=== PATIENT | male | born 1930 | race Caucasian/White ===

== ENCOUNTER 2020-02-02 08:17 | Observation (INO) | payer MEDICARE, OTHER ==
[2020-02-02] MEDS ORDERED: Famotidine 20 MG/2 ML SDV IVPUSH ONE (08:27)
--- NOTE | 2020-02-02 08:27 | EDM.PDOC ---
ED HPI GENERAL MEDICAL PROBLEM - General Chief Complaint: General Stated Complaint: weakness, lightheaded Time Seen by Provider: 02/02/20 08:20 Source of Information: Reports: Patient, Family (), Old Records ([facility] EMR. No paper hospital chart available.). Denies: Other ([facility]) History Limitations: Reports: No Limitations - History of Present Illness INITIAL COMMENTS - FREE TEXT/NARRATIVE: The patient was brought to the emergency room via private automobile by his for evaluation of progressive generalized weakness and dizziness since yesterday with possible nonspecific chest pressure yesterday evening. He is a somewhat poor historian. No treatment prior to arrival with history of possible heat exposure yesterday. The patient denies any current chest pain/pressure, heart flutter, orthostasis, orthopnea, diaphoresis, paresthesias, recent decreased exercise tolerance, or any other anginal-type symptoms. No recent history of abdominal pain, heartburn, nausea, diarrhea, melena, gross hematochezia, or any food intolerance, including fatty foods, etc.. He denies any gross hematuria, colic, or other UTI symptoms. The patient also denies any recent fever, cough, wheezing, dyspnea, etc.. He has had unintentional weight loss during the last 6 months of at least 10 pounds. No history of recent headaches, visual changes, diplopia, change in mental status, or other change in neurological status. He denies any current pain or discomfort. Onset: Gradual, Unknown/Unsure Onset Date: 02/01/20 Duration: Getting Worse (Dizziness, etc.), Other (No pain) Location: Reports: Chest. Denies: Head, Face, Neck, Abdomen, Back, Upper Extremity, Left, Upper Extremity, Right, Radiates to Quality: Reports: Same as Previous Episode Severity: Moderate (Weakness and dizziness) Improves with: Reports: None Worsens with: Reports: None Context: Reports: Other (As above). Denies: Sick Contact, Trauma Associated Symptoms: Reports: Chest Pain, Weakness. 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) (None) - Related Data Allergies Allergy/AdvReac Type Severity Reaction Status Date / Time Penicillins Allergy itching, Verified 02/02/20 09:24 hives shellfish derived Allergy itching & Verified 02/02/20 09:24 rash Home Meds: Home Meds Albuterol [Ventolin HFA] 2 puff INH Q6HR PRN 07/14/13 [History] Finasteride 5 mg PO BEDTIME 07/14/13 [History] Aspirin [Halfprin] 81 mg PO BRK 04/04/16 [History] Fluocinonide [Lidex 0.05% Crm] 1 applic TOP ASDIRECTED PRN 04/04/16 [History] Levothyroxine Sodium [Synthroid] 100 mcg PO DAILY 04/04/16 [History] Lisinopril 5 mg PO BEDTIME 04/04/16 [History] Loratadine 10 mg PO DAILY PRN 04/04/16 [History] Omeprazole 20 mg PO DAILY 04/04/16 [History] Polyethylene Glycol 3350 [MiraLAX] 17 gram PO DAILY PRN 04/04/16 [History] Past Medical History HEENT History: Reports: Allergic Rhinitis, Cataract, Hard of Hearing, Impaired Vision, Other (See Below) Other HEENT History: Patient wears glasses. 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 Cardiovascular History: Reports: Aneurysm, Arrhythmia, Heart Murmur, High Cholesterol, Hypertension, Pacemaker, Other (See Below) Other Cardiovascular History: Abdominal aortic aneurysm with repair as below. Aortic valve stenosis and mitral valve insufficiency by clinical exam. Orthostatic hypotension/syncope in March 2006. Respiratory History: Reports: Bronchitis, Recurrent, COPD, Intubation, Previous, Pulmonary Fibrosis Gastrointestinal History: Reports: GERD Genitourinary History: Reports: BPH, Chronic Renal Insuffiency. Denies: Acute Renal Failure Musculoskeletal History: Reports: Arthritis, Back Pain, Chronic, Osteoarthritis, Osteoporosis, Other (See Below) Other Musculoskeletal History: Right proximal arm tendon rupture requiring surgery as below. Iliopsoas. 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 Dermatologic History: Reports: Other (See Below) Other Dermatologic History: Chronic dermatitis. - Past Surgical History HEENT Surgical History: Reports: Cataract Surgery, Other (See Below) Other HEENT Surgeries/Procedures: Bilateral cataract surgery in 2014. Cardiovascular Surgical History: Reports: AAA Repair, Pacer, Other (See Below) Other Cardiovascular Surgeries/Procedures: AAA repair on 03/03/99. GI Surgical History: Reports: Appendectomy, Hernia, Abdominal, Other (See Below) Other GI Surgeries/Procedures: Ventral abdominal incisional hernia repair on 01/12/01 after previous AAA repair. Appendectomy in 1965. Neurological Surgical History: Reports: Discectomy, Lumbar Spine, Spinal Fusion, Other (See Below) Other Neurological Surgeries/Procedures: Spinal fusion of the lumbar spine in 1992 with previous lumbar surgery in the . Musculoskeletal Surgical History: Reports: Other (See Below) Other Musculoskeletal Surgeries/Procedures:: Right arm tendon repair in 1972. Oncologic Surgical History: Reports: Other (See Below) Other Oncologic Surgeries/Procedures: Excision of basal cell carcinoma from the left lateral nose region by Mohs procedure on 05/16/12. Dermatological Surgical History: Reports: Other (See Below) Other Dermatological Surgeries/Procedures: Excision of basal cell carcinoma as above. Social & Family History - Tobacco Use Smoking Status *Q: Former Smoker Tobacco Use Within Last Twelve Months: No Years of Tobacco use: 35 Packs/Tins Daily: 3 Packs/Tins Daily Comment: No use since 1989 Used Tobacco, but Quit: Yes ED ROS GENERAL - Review of Systems Review Of Systems: Comprehensive ROS is negative, except as noted in HPI. ED EXAM, GENERAL - Physical Exam Exam: See Below Exam Limited By: No Limitations General Appearance: Alert, WD/WN, No Apparent Distress, Cachetic Eye Exam: Right Eye: Other (Right-sided strabismus convergence), Bilateral Eye: PERRL Ears: Normal External Exam, Normal Canal, Hearing Grossly Normal, Normal TMs Nose: Normal Inspection, Normal Mucosa, No Blood Throat/Mouth: Normal Inspection, Normal Lips, Normal Teeth, Normal Gums, Normal Oropharynx, Normal Voice, No Airway Compromise. No: Dysphagia, Perioral Cyanosis Head: Atraumatic, Normocephalic. No: Facial Swelling, Facial Tenderness, Sinus Tenderness Neck: Supple, Non-Tender, Full Range of Motion, Carotid Bruit (Mild bilateral carotid bruits versus transmitted heart sounds). No: Lymphadenopathy (L), Lymphadenopathy (R), Thyromegaly Respiratory/Chest: No Respiratory Distress, No Accessory Muscle Use, Chest Non- Tender, Rales (Bilateral basilar mild). No: Pleural Rub, Retractions Cardiovascular: Normal Peripheral Pulses, Regular Rate, Rhythm, No Edema, No Gallop, No JVD, No Murmur, No Rub, Systolic Murmur (2/6 ALEXANDRU of the aortic valve with 1/6 ALEXANDRU of the mitral valve). No: Gallop/S3, Gallop/S4, Friction Rub Peripheral Pulses: 2+: Radial (L), Radial (R), Dorsalis Pedis (L), Dorsalis Pedis (R) GI/Abdominal: Normal Bowel Sounds, Soft, Non-Tender, No Organomegaly, No Distention, No Abnormal Bruit, No Mass. No: Guarding (Male) Exam: Deferred Rectal (Males) Exam: Deferred Back Exam: Full Range of Motion, Other (Scoliosismild). No: CVA Tenderness (L), CVA Tenderness (R), Muscle Spasm, Paraspinal Tenderness, Vertebral Tenderness Extremities: Normal Inspection, Normal Range of Motion, Non-Tender, No Pedal Edema, Normal Capillary Refill. No: Rico's Sign Neurological: Alert, Oriented, CN II-XII Intact, Normal Cognition, Normal Gait, Normal Reflexes (Negative Babinski's), No Motor/Sensory Deficits Psychiatric: Normal Affect, Normal Mood Skin Exam: Warm, Dry, Intact, Normal Color, No Rash, Ecchymosis (Mild in forearms bilaterally). No: Diaphoretic, Wound/Incision Lymphatic: No Adenopathy EKG INTERPRETATION EKG Date: 02/02/20 Time: 08:49 Rhythm: NSR (Demand pacemaker) Rate (Beats/Min): 62 [place]: Normal (Left) P-Wave: Variable QRS: Normal (0.08 seconds) ST-T: Other (New T-wave inversion in lead 1 and aVL) QT: Normal NH/PQ Interval: Variable Comparison: Change From Previous EKG (As above since 02/15/19) EKG Interpretation Comments: 1. Borderline lateral wall ischemia 2. Paced rhythm Course - Vital Signs Last Recorded V/S: Last Vital Signs Temp 36.7 C 02/02/20 08:19 Pulse 60 02/02/20 09:15 Resp 17 02/02/20 09:15 BP 129/60 02/02/20 09:15 Pulse Ox 96 02/02/20 09:15 Vital Signs - 24 hr 02/02/20 02/02/20 02/02/20 08:19 08:27 08:30 Temperature [ 36.7 C Temporal] Pulse, 70 65 Peripheral [ Left Pulse Oximetry] Respiratory 18 15 Rate Blood Pressure 127/58 L 113/54 L [Left Upper Arm ] O2 Sat by Pulse 96 95 Oximetry O2 Sat by Pulse 96 Oximetry [Room Air] 02/02/20 02/02/20 02/02/20 08:45 09:00 09:15 Temperature [ Temporal] Pulse, 61 62 60 Peripheral [ Left Pulse Oximetry] Respiratory 15 16 17 Rate Blood Pressure 121/54 L 132/60 129/60 [Left Upper Arm ] O2 Sat by Pulse 94 L 96 96 Oximetry O2 Sat by Pulse Oximetry [Room Air] - Orders/Labs/Meds Orders: Active Orders 24 hr Category Date Time Status Cardiac Monitoring [RC] . DIRECTED Care 02/02/20 08:27 Active EKG Documentation Completion [RC] ASDIRECTED Care 02/02/20 08:27 Active Oxygen Therapy, ED [RC] PRN Care 02/02/20 08:27 Active Peripheral IV Care [RC] . DIRECTED Care 02/02/20 08:27 Active Pulse Oximetry [RC] CONTINUOUS Care 02/02/20 08:27 Active Up With Assistance [RC] PFP Care 02/02/20 08:27 Active Vital Signs [RC] PFP Care 02/02/20 08:27 Active Nothing per Oral Now Diet [DIET] Diet 02/02/20 Breakfast Active Chest 1V Frontal [CR] Stat Exams 02/02/20 08:27 Taken Sodium Chloride 0.9% [Saline Flush] Med 02/02/20 08:27 Active 10 ml FLUSH ASDIRECTED PRN Obtain Past Medical Record [OM.PC] Urgent Oth 02/02/20 08:27 Active Peripheral IV Insertion Adult [OM.PC] Stat Oth 02/02/20 08:27 Ordered Resuscitation Status Stat Resus Stat 02/02/20 08:27 Ordered Medication Orders Sodium Chloride (Saline Flush) 10 ml FLUSH ASDIRECTED PRN PRN Reason: Keep Vein Open Last Admin: 02/02/20 09:59 Dose: 10 ml Documented by: Admin: 02/02/20 08:50 Dose: 10 ml Documented by: YESSICA Labs: Laboratory Tests 02/02/20 02/02/20 02/02/20 Range/Units 08:45 08:45 08:45 WBC 13.0 H (4.0-10.2) K/uL RBC 3.40 L (4.33-5.41) M/uL Hgb 10.0 L (13.1-16.8) g/dL Hct 29.7 L (39.0-49.0) % MCV 87.4 (84.0-98.0) fL MCH 29.4 (28.2-33.3) pg MCHC 33.7 (31.7-36.0) g/dL RDW 14.4 H (11.2-14.1) % Plt Count 61 L (150-350) K/uL Add Manual Diff Yes Neutrophils % (Manual) 78 Band Neutrophils % 6 Lymphocytes % (Manual) 7 Monocytes % (Manual) 6 Eosinophils % (Manual) 3 Absolute Neutrophils 10.9200 Lymphocytes # (Manual) 0.9100 Monocytes # (Manual) 0.7800 Eosinophils # (Manual) 0.3900 PT 11.9 (9.5-12.0) SEC INR 1.2 APTT 30.5 (24.5-32.8) SEC D-Dimer, Quantitative 2260 H (0-400) ng/mL Sodium (136-145) mmol/L Potassium (3.5-5.1) mmol/L Chloride (98-107) mmol/L Carbon Dioxide (21.0-32.0) mmol/L BUN (7-18) mg/dL Creatinine (0.51-1.17) mg/dL Est Cr Clr Drug Dosing Estimated GFR (MDRD) mL/min Glucose (74-106) mg/dL Lactic Acid (0.4-2.0) mmol/L Uric Acid (2.6-7.2) mg/dL Calcium (8.5-10.1) mg/dL Magnesium (1.8-2.4) mg/dL Total Bilirubin (0.2-1.0) mg/dL AST (15-37) U/L ALT (12-78) U/L Alkaline Phosphatase (46-116) IU/L Creatine Kinase (26-308) U/L Creatine Kinase Index (0.0-2.5) % CK-MB (CK-2) (0.00-3.60) ng/mL Troponin I (0.000-0.056) ng/mL NT-Pro-B Natriuret Pep (0-125) pg/mL Total Protein (6.4-8.2) g/dL Albumin (3.4-5.0) g/dL TSH, Ultra Sensitive (0.358-3.740) mIU/mL 02/02/20 02/02/20 Range/Units 08:45 08:45 WBC (4.0-10.2) K/uL RBC (4.33-5.41) M/uL Hgb (13.1-16.8) g/dL Hct (39.0-49.0) % MCV (84.0-98.0) fL MCH (28.2-33.3) pg MCHC (31.7-36.0) g/dL RDW (11.2-14.1) % Plt Count (150-350) K/uL Add Manual Diff Neutrophils % (Manual) Band Neutrophils % Lymphocytes % (Manual) Monocytes % (Manual) Eosinophils % (Manual) Absolute Neutrophils Lymphocytes # (Manual) Monocytes # (Manual) Eosinophils # (Manual) PT (9.5-12.0) SEC INR APTT (24.5-32.8) SEC D-Dimer, Quantitative (0-400) ng/mL Sodium 134 L (136-145) mmol/L Potassium 5.4 H (3.5-5.1) mmol/L Chloride 100 (98-107) mmol/L Carbon Dioxide 25.7 (21.0-32.0) mmol/L BUN 33 H (7-18) mg/dL Creatinine 1.58 H (0.51-1.17) mg/dL Est Cr Clr Drug Dosing TNP Estimated GFR (MDRD) 42 mL/min Glucose 126 H (74-106) mg/dL Lactic Acid 0.8 (0.4-2.0) mmol/L Uric Acid 6.4 (2.6-7.2) mg/dL Calcium 9.0 (8.5-10.1) mg/dL Magnesium 2.4 (1.8-2.4) mg/dL Total Bilirubin 0.8 (0.2-1.0) mg/dL AST 17 (15-37) U/L ALT 17 (12-78) U/L Alkaline Phosphatase 45 L (46-116) IU/L Creatine Kinase 108 (26-308) U/L Creatine Kinase Index 0.8 (0.0-2.5) % CK-MB (CK-2) 0.90 (0.00-3.60) ng/mL Troponin I 0.000 (0.000-0.056) ng/mL NT-Pro-B Natriuret Pep 820 H (0-125) pg/mL Total Protein 6.9 (6.4-8.2) g/dL Albumin 3.6 (3.4-5.0) g/dL TSH, Ultra Sensitive 1.098 (0.358-3.740) mIU/mL Meds: Medications Generic Name Dose Route Start Last Admin Trade Name Freq PRN Reason Stop Dose Admin Sodium Chloride 10 ml 02/02/20 08:27 02/02/20 09:59 Saline Flush FLUSH 10 ml ASDIRECTED PRN Administration Keep Vein Open Discontinued Medications Generic Name Dose Route Start Last Admin Trade Name Freq PRN Reason Stop Dose Admin Enoxaparin Sodium 70 mg 02/02/20 09:51 02/02/20 09:58 Lovenox SUBCUT 02/02/20 09:52 70 mg ONETIME ONE Administration Famotidine 40 mg 02/02/20 08:27 02/02/20 08:50 Pepcid IVPUSH 02/02/20 08:28 40 mg ONETIME ONE Administration Furosemide 60 mg 02/02/20 09:51 02/02/20 09:58 Lasix IVPUSH 02/02/20 09:52 60 mg NOW ONE Administration - Radiology Interpretation Free Text/Narrative:: 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 Chest x-ray, portable, shows moderate COPD and pulmonary fibrotic changes with mild centralized CHF and probable pulmonary hypertension. Prominent aortic arch with no pneumothorax, pulmonary infiltrates, etc. 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 (chronic obstructive pulmonary disease) Qualifiers: COPD type: emphysema Emphysema type: panlobular Qualified Code(s): J43.1 - Panlobular emphysema - Discharge Information *PRESCRIPTION DRUG MONITORING PROGRAM REVIEWED*: Not Applicable *COPY OF PRESCRIPTION DRUG MONITORING REPORT IN PATIENT KADEN: Not Applicable Referrals: PCP,None [Primary Care Provider] - Forms: ED Department Discharge Sepsis Event Note (ED) - Evaluation Sepsis Screening Result: No Definite Risk - Focused Exam Vital Signs: Vital Signs Temp Pulse Resp BP Pulse Ox Pulse Ox 02/02/20 09:15 60 17 129/60 96 02/02/20 09:00 62 16 132/60 96 02/02/20 08:45 61 15 121/54 L 94 L 02/02/20 08:30 65 15 113/54 L 95 02/02/20 08:27 96 02/02/20 08:19 36.7 C 70 18 127/58 L 96 - Problem List & Annotations (1) Chest pain SNOMED Code(s): 66337534 Code(s): R07.9 - CHEST PAIN, UNSPECIFIED Status: Acute Priority: High Current Visit: Yes Onset Date: ~02/01/20 Annotation/Comment:: Nonspecific chest pain yesterday evening with d-dimer elevation as below. No other anginal- type symptoms. Chest pain protocol was initiated upon patient's arrival to the emergency room, however ASA and Brilinta were not given secondary to absence of chest pain-type symptoms at time of arrival to this facility. Note initiation of subcutaneous Lovenox in the emergency room secondary to d-dimer elevation as below, however. [facility] physician assumes care. Qualifiers: Chest pain type: precordial pain Qualified Code(s): R07.2 - Precordial pain (2) CHF, Congestive heart failure SNOMED Code(s): 78519389 Code(s): I50.9 - HEART FAILURE, UNSPECIFIED Status: Acute Priority: High Current Visit: Yes Onset Date: 02/02/20 Annotation/Comment:: IV Lasix initiated in the emergency room. (3) D-dimer, elevated SNOMED Code(s): 815904447 Code(s): R79.89 - OTHER SPECIFIED ABNORMAL FINDINGS OF BLOOD CHEMISTRY Status: Acute Priority: High Current Visit: Yes Onset Date: 02/02/20 Annotation/Comment:: Secondary to patient's renal insufficiency CTA of the chest could not be conducted. Subcutaneous Lovenox initiated in the emergency room as above. Consider venous Doppler studies of the lower extremities when available. (4) Anemia SNOMED Code(s): 400563746 Code(s): D64.9 - ANEMIA, UNSPECIFIED Status: Acute Priority: Medium Current Visit: Yes Onset Date: ~02/02/20 Annotation/Comment:: Note renal insufficiency. Further workup depending on her clinical course. No evidence of acute GI bleed. High-dose IV Pepcid given as GI prophylaxis. Qualifiers: Anemia type: due to chronic kidney disease Chronic kidney disease stage: stage 3 (moderate) Qualified Code(s): N18.3 - Chronic kidney disease, stage 3 (moderate); D63.1 - Anemia in chronic kidney disease (5) COPD (chronic obstructive pulmonary disease) SNOMED Code(s): 48368423 Code(s): J44.9 - CHRONIC OBSTRUCTIVE PULMONARY DISEASE, UNSPECIFIED Status: Acute Current Visit: Yes Qualifiers: COPD type: emphysema Emphysema type: panlobular Qualified Code(s): J43.1 - Panlobular emphysema (6) Hypoalbuminemia SNOMED Code(s): 266064973 Code(s): E88.09 - H DISORDERS OF PLASMA-PROTEIN METABOLISM, NEC Status: Chronic Priority: Medium Current Visit: Yes Annotation/Comment:: Observe for now (7) Renal insufficiency SNOMED Code(s): 012002124, 427157534 Code(s): N28.9 - DISORDER OF KIDNEY AND URETER, UNSPECIFIED Status: Chronic Priority: Medium Current Visit: Yes Annotation/Comment:: Stable per medical records. Continue to observe closely secondary to IV Lasix therapy. - Problem List Review Problem List Initiated/Reviewed/Updated: Yes - My Orders Last 24 Hours: My Active Orders 02/02/20 Breakfast Nothing per Oral Now Diet [DIET] 02/02/20 08:27 Cardiac Monitoring [RC] . DIRECTED EKG Documentation Completion [RC] ASDIRECTED Oxygen Therapy, ED [RC] PRN Peripheral IV Care [RC] . DIRECTED Pulse Oximetry [RC] CONTINUOUS Up With Assistance [RC] PFP Vital Signs [RC] PFP Chest 1V Frontal [CR] Stat Sodium Chloride 0.9% [Saline Flush] 10 ml FLUSH ASDIRECTED PRN Obtain Past Medical Record [OM.PC] Urgent Peripheral IV Insertion Adult [OM.PC] Stat Resuscitation Status Stat - Assessment/Plan Last 24 Hours: My Active Orders 02/02/20 Breakfast Nothing per Oral Now Diet [DIET] 02/02/20 08:27 Cardiac Monitoring [RC] . DIRECTED EKG Documentation Completion [RC] ASDIRECTED Oxygen Therapy, ED [RC] PRN Peripheral IV Care [RC] . DIRECTED Pulse Oximetry [RC] CONTINUOUS Up With Assistance [RC] PFP Vital Signs [RC] PFP Chest 1V Frontal [CR] Stat Sodium Chloride 0.9% [Saline Flush] 10 ml FLUSH ASDIRECTED PRN Obtain Past Medical Record [OM.PC] Urgent Peripheral IV Insertion Adult [OM.PC] Stat Resuscitation Status Stat Assessment:: As above Plan: As above. Otilio zayas physician assuming care.
[2020-02-02] MEDS: Sodium Chloride 0.9% 10 ML Syringe FLUSH PRN ×2 (08:50→09:59)
[2020-02-02 09:08] LABS: PTT,PARTIAL THROMBOPLSTIN TIME 30.5 SEC (24.5-32.8)
[2020-02-02 09:18] LABS: CHLORIDE,CL 100 mmol/L (98-107); SODIUM,NA 134 mmol/L (136-145)
[2020-02-02] MEDS ORDERED: Furosemide 40 MG/4 ML VIAL IVPUSH ONE (09:51)
[2020-02-02] MEDS ORDERED: Enoxaparin 60 MG/0.6 ML Syringe SUBCUT ONE (09:51)
[2020-02-02] MEDS ORDERED: Loratadine 10 MG Tab PO PRN (13:20)
[2020-02-02] MEDS ORDERED: Albuterol 8 GM Inhaler INH PRN (13:20)
[2020-02-02] MEDS ORDERED: Polyethylene Glycol 3350 Powder 17 GM Packet PO PRN (13:20)
[2020-02-02] MEDS: Sodium Chloride 0.9% 1,000 ML IV SCH (13:43)
[2020-02-02] MEDS ORDERED: Finasteride 5 MG Tab PO SCH (20:00)
[2020-02-02] MEDS ORDERED: Lisinopril 5 MG Tab PO SCH (20:00)
[2020-02-03] MEDS: Sodium Chloride 0.9% 1,000 ML IV SCH (04:55)
[2020-02-03] MEDS ORDERED: Omeprazole 20 MG Cap.CR PO SCH (07:30)
[2020-02-03] MEDS ORDERED: Levothyroxine 100 MCG Tab PO SCH (07:30)
[2020-02-03 07:58] VITALS: BP 118/62; PULSE 63
[2020-02-03] MEDS ORDERED: Aspirin 81 MG Tab.EC PO SCH (08:00)
--- NOTE | 2020-02-03 10:48 | PCM.DCSUM1 ---
Discharge Summary - Hospital Course Brief History: Admitted observation for dizziness/weakness, elevated DDimer. Mild hyperkalemia. Diagnosis: Stroke: No - Discharge Data Discharge Date: 02/03/20 Discharge Disposition: Home, Self-Care 01 Condition: Good - Referral to Home Health Primary Care Physician: PCP None - Discharge Diagnosis/Problem(s) (1) Dehydration SNOMED Code(s): 85754253 ICD Code: E86.0 - DEHYDRATION Status: Acute Priority: High Current Visit: No Onset Date: ~02/02/20 Problem Details: Main complaints were dizziness/weakness. Had been out and about during the previous day in extemely hot weather/100-110 degree heat index. Suspected mild dehydration could be contributing based on history and presenting complaints. IV fluids received overnight. Today dizziness/weakness resolved per patient. He is feeling much better. (2) Chest pain SNOMED Code(s): 69271488 ICD Code: R07.9 - CHEST PAIN, UNSPECIFIED Status: Acute Priority: High Current Visit: Yes Onset Date: ~02/01/20 Problem Details: Nonspecific chest pain evening prior to presentation. Has not returned since then. No other anginal-type symptoms. Chest pain protocol was initiated upon patient's arrival to the emergency room, however ASA and Brilinta were not given secondary to absence of chest pain-type symptoms at time of arrival to this facility. Serial troponins have been negative. No acute ischemia identified on EKG. Unremarkable telemetry during stay. Qualifiers: Chest pain type: precordial pain Qualified Code(s): R07.2 - Precordial pain (3) D-dimer, elevated SNOMED Code(s): 746679452 ICD Code: R79.89 - OTHER SPECIFIED ABNORMAL FINDINGS OF BLOOD CHEMISTRY Status: Acute Priority: High Current Visit: Yes Onset Date: 02/02/20 Problem Details: Secondary to patient's renal insufficiency CTA of the chest could not be conducted. Bun/Cr did not improve after IV fluids. Significance of D-dimer elevation and possible link to PE discussed at time of admission and again this morning. He denies any chest pain/SOB. O2 sats on room air and respiratory rate during stay optimal. Patient declined potential transfer to [facility] for VQ scan ([facility] unable to perform VQ). He is recommended to follow up with [facility] tomorrow and look into lower extremity US study. (4) Hyperkalemia SNOMED Code(s): 16308111 ICD Code: E87.5 - HYPERKALEMIA Status: Acute Current Visit: Yes Problem Details: Resolved today after receiving IV fluids and single dose lasix. Suspect initial elevation due to dehydration in addition to patient's chronic kidney disease (5) Chronic kidney disease SNOMED Code(s): 906007453 ICD Code: N18.9 - CHRONIC KIDNEY DISEASE, UNSPECIFIED Status: Acute Priority: Low Current Visit: Yes Problem Details: Stable per history Qualifiers: Chronic kidney disease stage: unspecified stage Qualified Code(s): N18.9 - Chronic kidney disease, unspecified (6) Anemia SNOMED Code(s): 085733822 ICD Code: D64.9 - ANEMIA, UNSPECIFIED Status: Chronic Priority: Medium Current Visit: Yes Onset Date: ~02/02/20 Problem Details: Note renal insufficiency. Has had slow decline of Hgb over last 5 years per record review. No evidence of acute GI bleed. High-dose IV Pepcid given as GI prophylaxis. Patient unable to produce stool specimen for occult blood testing. Recommended to patient that he arrange testing for occult blood through [facility] this week. Qualifiers: Anemia type: due to chronic kidney disease Chronic kidney disease stage: stage 3 (moderate) Qualified Code(s): N18.3 - Chronic kidney disease, stage 3 (moderate); D63.1 - Anemia in chronic kidney disease (7) CHF, Congestive heart failure SNOMED Code(s): 83199472 ICD Code: I50.9 - HEART FAILURE, UNSPECIFIED Status: Chronic Priority: Medium Current Visit: Yes Onset Date: 02/02/20 Problem Details: IV Lasix given in the emergency room. No evidence of fluid overload noted on chest xray/exam. Appears stable at this time. - Patient Summary/Data Hospital Course: Unremarkable hospital course. Patient rested and watched TV. Good appetite. IV fluids given at lower rate to avoid fluid overload. Patient reports resolution of presenting symptoms when rounded on this morning. Would like to go home. Declined further workup for elevated DDimer as noted above. As noted above, he did not complain of SOB at any time and has had no complaint of chest discomfort since admission. O2 sats on room air and respiratory rate have been in normal range since presenting to ER. Continue to suspect that the excessive heat and dehydration likely led to presenting symptoms based on history and subsequent response to rest and IV fluids. [facility] of [facility]/stool testing for occult blood and further workup for the anemia as needed. He was agreeable with plan. Extensive precautions reviewed, particularly around symptoms suggestive of PE such as SOB. He knows to return for evaluation if he experiences any of these symptoms. - Patient Instructions Diet: Usual Diet as Tolerated Activity: As Tolerated Driving: May Drive Today Showering/Bathing: May Shower Other/Special Instructions: Contact the [facility] tomorrow and see if you can arrange follow up for the elevated DDimer we spoke of during your stay. It can be elevated for many reasons. One reason can be blood clots in your legs/lungs. See if they can order an ultrasound test of your lower legs to help rule this out. We can perform the test in [place] here at the hospital too. Also see if you can get stool testing for occult blood. Your blood count for red blood cells has been slowly dropping for 5 years. This may be due to the kidney issues but it is good to make sure you are not losing blood somewhere in your GI tract. If you have sudden shortness of breath/chest pain, then it is best that you get the special scan to rule out any blood clots in your lung--get back to the ER if that happens and get rechecked! Stay cool and stay hydrated! - Discharge Plan *PRESCRIPTION DRUG MONITORING PROGRAM REVIEWED*: Not Applicable *COPY OF PRESCRIPTION DRUG MONITORING REPORT IN PATIENT KADEN: Not Applicable Home Medications: Home Meds Albuterol [Ventolin HFA] 2 puff INH Q6HR PRN 07/14/13 [History] Finasteride 5 mg PO BEDTIME 07/14/13 [History] Aspirin [Halfprin] 81 mg PO BRK 04/04/16 [History] Fluocinonide [Lidex 0.05% Crm] 1 applic TOP ASDIRECTED PRN 04/04/16 [History] Levothyroxine Sodium [Synthroid] 100 mcg PO DAILY 04/04/16 [History] Lisinopril 5 mg PO BEDTIME 04/04/16 [History] Loratadine 10 mg PO DAILY PRN 04/04/16 [History] Omeprazole 20 mg PO DAILY 04/04/16 [History] Polyethylene Glycol 3350 [MiraLAX] 17 gram PO DAILY PRN 04/04/16 [History] Forms: ED Department Discharge Referrals: PCP,None [Primary Care Provider] - - Discharge Summary/Plan Comment DC Time >30 min.: Yes (waiting for to come give him a ride) - General Info Date of Service: 02/03/20 Admission Dx/Problem (Free Text: Feeling weak/dizzy Subjective Update: Patient reports that presenting complaints of weakness/dizziness have resolved. No chest pain or SOB. Would like to go home. Functional Status: Reports: Pain Controlled, Tolerating Diet, Ambulating, Urinating. Denies: New Symptoms - Review of Systems General: Reports: No Symptoms HEENT: Reports: No Symptoms, Glasses Pulmonary: Reports: No Symptoms. Denies: Shortness of Breath, Pleuritic Chest Pain, Cough, Sputum, Hemoptysis, Wheezing Cardiovascular: Reports: No Symptoms. Denies: Chest Pain, Palpitations, Dyspnea on Exertion, Orthopnea, Edema, Lightheadedness Gastrointestinal: Reports: No Symptoms Genitourinary: Reports: No Symptoms Musculoskeletal: Reports: No Symptoms (no acute changes from baseline) Skin: Reports: Other (has some actinics/sun damage around ears that he has been scratching at on right side today) Neurological: Reports: No Symptoms Psychiatric: Reports: No Symptoms - Patient Data Vitals - Most Recent: Last Vital Signs Temp 36.5 C 02/03/20 07:57 Pulse 63 02/03/20 07:57 Resp 17 02/03/20 07:57 BP 118/62 02/03/20 07:57 Pulse Ox 96 02/03/20 07:57 Weight - Most Recent: 67.857 kg I&O - Last 24 hours: Intake & Output 02/02/20 02/03/20 02/03/20 22:59 06:59 14:59 Intake Total 660 1106 460 Output Total 150 400 800 Balance 510 706 -340 Lab Results - Last 24 hrs: Laboratory Results - last 24 hr 02/02/20 02/02/20 02/03/20 Range/Units 17:30 17:30 07:10 WBC 5.2 (4.0-10.2) K/uL RBC 3.36 L (4.33-5.41) M/uL Hgb 9.9 L (13.1-16.8) g/dL Hct 29.2 L (39.0-49.0) % MCV 86.9 (84.0-98.0) fL MCH 29.5 (28.2-33.3) pg MCHC 33.9 (31.7-36.0) g/dL RDW 14.1 (11.2-14.1) % Plt Count 64 L (150-350) K/uL Neut % (Auto) 55.0 (45.0-80.0) % Lymph % (Auto) 20.0 (10.0-50.0) % [place] % (Auto) 17.2 H (2.0-14.0) % Eos % (Auto) 3.9 (0.0-5.0) % Baso % (Auto) 3.9 H (0.0-2.0) % Neut # (Auto) 2.84 (1.40-7.00) K/uL Lymph # (Auto) 1.03 (0.50-3.50) K/uL [place] # (Auto) 0.89 (0.00-1.00) K/uL Eos # (Auto) 0.20 (0.00-0.50) K/uL Baso # (Auto) 0.20 (0.00-0.20) K/uL D-Dimer, Quantitative (0-400) ng/mL Sodium (136-145) mmol/L Potassium (3.5-5.1) mmol/L Chloride (98-107) mmol/L Carbon Dioxide (21.0-32.0) mmol/L BUN (7-18) mg/dL Creatinine (0.51-1.17) mg/dL Est Cr Clr Drug Dosing mL/min Estimated GFR (MDRD) mL/min Glucose (74-106) mg/dL Calcium (8.5-10.1) mg/dL Troponin I 0.000 (0.000-0.056) ng/mL Specimen Type Urinblad Urine Color Yellow Urine Appearance Clear Urine pH 6.5 (5.0-9.0) Ur Specific [place] 1.020 (1.005-1.030) Urine Protein Negative (NEGATIVE) mg/dL Urine Glucose (UA) Negative (NEGATIVE) mg/dL Urine Ketones Negative (NEGATIVE) mg/dL Urine Occult Blood Trace-intact H (NEGATIVE) Urine Nitrite Negative (NEGATIVE) Urine Bilirubin Negative (NEGATIVE) Urine Urobilinogen 0.2 (0.2-1.0) E.U./dL Ur Leukocyte Esterase Negative (NEGATIVE) Urine RBC 0-5 /HPF Urine WBC 0-5 /HPF Ur Epithelial Cells Rare /LPF Urine Bacteria Rare (NONE TO FEW) /HPF 02/03/20 02/03/20 Range/Units 07:10 07:10 WBC (4.0-10.2) K/uL RBC (4.33-5.41) M/uL Hgb (13.1-16.8) g/dL Hct (39.0-49.0) % MCV (84.0-98.0) fL MCH (28.2-33.3) pg MCHC (31.7-36.0) g/dL RDW (11.2-14.1) % Plt Count (150-350) K/uL Neut % (Auto) (45.0-80.0) % Lymph % (Auto) (10.0-50.0) % [place] % (Auto) (2.0-14.0) % Eos % (Auto) (0.0-5.0) % Baso % (Auto) (0.0-2.0) % Neut # (Auto) (1.40-7.00) K/uL Lymph # (Auto) (0.50-3.50) K/uL [place] # (Auto) (0.00-1.00) K/uL Eos # (Auto) (0.00-0.50) K/uL Baso # (Auto) (0.00-0.20) K/uL D-Dimer, Quantitative 1820 H (0-400) ng/mL Sodium 133 L (136-145) mmol/L Potassium 4.0 (3.5-5.1) mmol/L Chloride 99 (98-107) mmol/L Carbon Dioxide 24.2 (21.0-32.0) mmol/L BUN 33 H (7-18) mg/dL Creatinine 1.54 H (0.51-1.17) mg/dL Est Cr Clr Drug Dosing 32.44 mL/min Estimated GFR (MDRD) 43 mL/min Glucose 101 (74-106) mg/dL Calcium 8.5 (8.5-10.1) mg/dL Troponin I 0.007 (0.000-0.056) ng/mL Specimen Type Urine Color Urine Appearance Urine pH (5.0-9.0) Ur Specific [place] (1.005-1.030) Urine Protein (NEGATIVE) mg/dL Urine Glucose (UA) (NEGATIVE) mg/dL Urine Ketones (NEGATIVE) mg/dL Urine Occult Blood (NEGATIVE) Urine Nitrite (NEGATIVE) Urine Bilirubin (NEGATIVE) Urine Urobilinogen (0.2-1.0) E.U./dL Ur Leukocyte Esterase (NEGATIVE) Urine RBC /HPF Urine WBC /HPF Ur Epithelial Cells /LPF Urine Bacteria (NONE TO FEW) /HPF Med Orders - Current: Current Medications Albuterol (Ventolin Hfa) 0 gm INH Q6H PRN PRN Reason: Dyspnea Aspirin (Halfprin) 81 mg PO DAILY [facility] Last Admin: 02/03/20 07:46 Dose: 81 mg Documented by: Finasteride (Proscar) 5 mg PO BEDTIME [facility] Last Admin: 02/02/20 20:07 Dose: 5 mg Documented by: Sodium Chloride (Normal Saline) 1,000 mls @ 75 mls/hr IV ASDIRECTED [facility] Last Admin: 02/03/20 04:55 Dose: 75 mls/hr Documented by: Levothyroxine Sodium (Synthroid) 100 mcg PO ACBREAKFAST [facility] Last Admin: 02/03/20 07:46 Dose: 100 mcg Documented by: Lisinopril (Prinivil) 5 mg PO BEDTIME [facility] Last Admin: 02/02/20 20:07 Dose: 5 mg Documented by: Loratadine (Claritin) 10 mg PO DAILY PRN PRN Reason: Allergies Omeprazole (Omeprazole) 20 mg PO ACBREAKFAST [facility] Last Admin: 02/03/20 07:45 Dose: 20 mg Documented by: Polyethylene Glycol (Miralax) 17 gm PO DAILY PRN PRN Reason: Constipation Sodium Chloride (Saline Flush) 10 ml FLUSH ASDIRECTED PRN PRN Reason: Keep Vein Open Last Admin: 02/02/20 09:59 Dose: 10 ml Documented by: Discontinued Medications Enoxaparin Sodium (Lovenox) 70 mg SUBCUT ONETIME ONE Stop: 02/02/20 09:52 Last Admin: 02/02/20 09:58 Dose: 70 mg Documented by: Famotidine (Pepcid) 40 mg IVPUSH ONETIME ONE Stop: 02/02/20 08:28 Last Admin: 02/02/20 08:50 Dose: 40 mg Documented by: Furosemide (Lasix) 60 mg IVPUSH NOW ONE Stop: 02/02/20 09:52 Last Admin: 02/02/20 09:58 Dose: 60 mg Documented by: - Exam General: Reports: Alert, Oriented, Cooperative, No Acute Distress HEENT: Reports: Pupils Equal, Pupils Reactive, EOMI, Mucous Membr. Moist/[place] Neck: Reports: Supple Lungs: Reports: Clear to Auscultation, Normal Respiratory Effort Cardiovascular: Reports: Regular Rate, Regular Rhythm GI/Abdominal Exam: Normal Bowel Sounds, Soft, Non-Tender, No Distention (Male) Exam: Deferred Rectal (Males) Exam: Deferred Back Exam: Denies: Muscle Spasm Extremities: Non-Tender, Normal Capillary Refill Skin: Reports: Warm, Dry Neurological: Reports: No New Focal Deficit Psy/Mental Status: Reports: Alert, Normal Affect, Normal Mood EKG INTERPRETATION EKG Date: 02/03/20 Time: 11:17 Rhythm: Other (Sinus rhythm/1st degree block) Rate (Beats/Min): 61 [place]: Normal P-Wave: Present QRS: Normal ST-T: Normal QT: Normal Comparison: No Change
== END 2020-02-03 12:05 | disposition home or self-care (01) ==
LOC: LL.ED 08:17 → LL.MS 11:20 → UNDOADMOB 11:20 → LL.MS 13:16 → UNDODISOB 02-03 12:05
PROVIDERS: ADMIT Family Medicine; ATTEND Emergency Medicine
DX: E86.0 Dehydration (principal); R07.2 Precordial pain; E87.5 Hyperkalemia; E88.09 Other disorders of plasma-protein metabolism, not elsewhere classified; J43.1 Panlobular emphysema; R79.1 Abnormal coagulation profile; I13.0 Hypertensive heart and chronic kidney disease with heart failure and stage 1 through stage 4 chronic kidney disease, or unspecified chronic kidney disease; I50.9 Heart failure, unspecified; N18.3 Chronic kidney disease, stage 3 (moderate); D63.1 Anemia in chronic kidney disease; E78.00 Pure hypercholesterolemia, unspecified; E03.9 Hypothyroidism, unspecified; M81.0 Age-related osteoporosis without current pathological fracture; Z87.891 Personal history of nicotine dependence; Z79.899 Other long term (current) drug therapy; Z88.0 Allergy status to penicillin; Z91.013 Allergy to seafood; Z79.82 Long term (current) use of aspirin; Z79.890 Hormone replacement therapy
CPT/HCPCS: 36415; 71045; 80048; 80053; 81001; 82550; 82553; 83605; 83735; 83880; 84443; 84484; 84550; 85025; 85379; 85610; 85730; 93005; 96361; 96372; 96374; 96375; 99217; 99219; 99285-25; A9270-GY; G0378; J1650; J1940; J3490; J7030

== ENCOUNTER 2020-04-23 14:09 | Inpatient (IN) | payer MEDICARE, OTHER ==
[2020-04-23] MEDS ORDERED: Acetaminophen 325 MG Tab PO ONE (14:19)
--- NOTE | 2020-04-23 14:19 | EDM.PDOC ---
ED HPI GENERAL MEDICAL PROBLEM - General Chief Complaint: General Stated Complaint: weakness Time Seen by Provider: 04/23/20 14:10 Source of Information: Reports: Patient, Old Records ([facility] EMR. No paper hospital chart available.) History Limitations: Reports: No Limitations - History of Present Illness INITIAL COMMENTS - FREE TEXT/NARRATIVE: The patient was brought to the emergency room via private automobile by his for evaluation of progressive nonspecific weakness since yesterday afternoon. He is a somewhat poor historian, although he does state that he may have been overdoing it yesterday with garden work at home, etc.. The patient denies any chest pain/pressure, heart flutter, dizziness, orthostasis, orthopnea, diaphoresis, paresthesias, recent decreased exercise tolerance, or any other anginal-type symptoms. No recent history of abdominal pain, heartburn, nausea, diarrhea, melena, gross hematochezia, or any food intolerance, including fatty foods, etc. with normal bowel movement yesterday. He has had some new onset urinary incontinence since yesterday evening associated with 8/10 bilateral CVA discomfort with resolution of his kidney pain this morning however persistent urinary incontinence. He denies any history of gross hematuria, colic, or other UTI symptoms. The patient also denies any recent fever, wheezing, dysp benjamín, etc., although he has had a nonspecific clear nonproductive cough during the last couple of days. He denies any known exposure to infection, including COVID-19, etc with the parent negative COVID-19 screen at the [facility] last week by his history. No history of recent headaches, visual changes, diplopia, change in mental status, or other change in neurological status. He denies any other current pain or discomfort. Onset: Gradual Onset Date: 04/22/20 Duration: Resolved Prior to Arrival (Nonspecific kidney pain as above.) Location: Denies: Head, Face, Neck, Chest, Abdomen, Back, Pelvis, Upper Extremity, Left, Upper Extremity, Right, Generalized, Radiates to Quality: Reports: Ache Improves with: Reports: None Worsens with: Reports: None Context: Reports: Other (As above). Denies: Sick Contact, Trauma Associated Symptoms: Reports: Cough, cough w sputum, Weakness. Denies: Confusion, Chest Pain, Diaphoresis, Fever/Chills, Headaches, Loss of Appetite, Malaise, Nausea/Vomiting, Rash, Seizure, Shortness of Breath, Syncope Treatments EPIC MANAGER: Reports: Other (see below) (None) - Related Data Allergies Allergy/AdvReac Type Severity Reaction Status Date / Time Penicillins Allergy itching, Verified 04/23/20 14:51 hives shellfish derived Allergy itching & Verified 04/23/20 14:51 rash Home Meds: Home Meds Albuterol [Ventolin HFA] 2 puff INH Q6HR PRN 07/14/13 [History] Finasteride 5 mg PO BEDTIME 07/14/13 [History] Aspirin [Halfprin] 81 mg PO BRK 04/04/16 [History] Levothyroxine Sodium [Synthroid] 100 mcg PO DAILY 04/04/16 [History] Lisinopril 20 mg PO BEDTIME 04/04/16 [History] Loratadine 10 mg PO DAILY PRN 04/04/16 [History] Omeprazole 20 mg PO DAILY 04/04/16 [History] Polyethylene Glycol 3350 [MiraLAX] 17 gram PO DAILY PRN 04/04/16 [History] L.acidoph,Paracasei, B.lactis [Probiotic] 1 each PO DAILY 04/23/20 [History] Multivitamin 1 each PO DAILY 04/23/20 [History] Salicyl/Methyl Salicylate/Talc [Dr. López's Original Foot Pwd] 85 gm TP ASDIRECTED PRN 04/23/20 [History] Triamcinolone Acetonide [Triamcinolone Acetonide 0.1% Crm] 1 applic TOP BID PRN 04/23/20 [History] amLODIPine [Norvasc] 2.5 mg PO DAILY 04/23/20 [History] Past Medical History HEENT History: Reports: Allergic Rhinitis, Cataract, Hard of Hearing, Impaired Vision, Other (See Below). Denies: Glaucoma, Macular Degeneration, Otitis Media, Retinal Detachment Other HEENT History: Patient wears glasses. 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 Cardiovascular History: Reports: Aneurysm, Arrhythmia, Heart Failure, Heart Murmur, High Cholesterol, Hypertension, Pacemaker, Syncope, Other (See Below). Denies: Afib, Blood Clots/VTE/DVT, Bypass, CAD, KS, PTCA, Stents Other Cardiovascular History: Abdominal aortic aneurysm with repair as below. Aortic valve stenosis and mitral valve insufficiency by clinical exam. Orthostatic hypotension/syncope in March 2006. D-dimer elevation on 02/02/2020 with apparent negative subsequent venous Doppler studies of the lower extremities at the [facility]. Patient is uncertain whether he had recommended VQ scan. 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 Mild CHF on 02/02/2020 with no known further work-up. Respiratory History: Reports: Bronchitis, Recurrent, COPD, Intubation, Previous, Pulmonary Fibrosis. Denies: Asthma, Intubation, Difficult, PE, Pneumothorax, Sleep Apnea, TB Gastrointestinal History: Reports: Chronic Constipation, GERD. Denies: Celiac Disease, Cholelithiasis, Chronic Diarrhea, Colon Polyp, Diverticulosis, Fecal Incontinence, Gastritis, GI Bleed, Inflammatory Bowel Disease, Irritable Bowel Syndrome, Jaundice, PUD Genitourinary History: Reports: BPH, Chronic Renal Insuffiency. Denies: Acute Renal Failure, Renal Calculus, Retention, Urinary, STD, Urinary Incontinence, UTI, Recurrent Musculoskeletal History: Reports: Arthritis, Back Pain, Chronic, Neck Pain, Chronic, Osteoarthritis, Osteoporosis, Other (See Below). Denies: Fracture, Gout, RA, SLE Other Musculoskeletal History: Right proximal arm tendon rupture requiring surgery as below. Iliopsoas. Neurological History: Reports: CVA, Other (See Below). 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 Psychiatric History: Reports: None. Denies: Abuse, Victim of, ADD, ADHD, Anxiety, Depression, Psych Hospitalization(s), PTSD, Suicide Attempt, Suicidal Ideation Endocrine/Metabolic History: Reports: Hypothyroidism, Osteopenia, Osteoporosis, Other (See Below). Denies: Diabetes, Type I, Diabetes, Type II, Diabetes Mellitus, Type 3c, IDDM Other Endocrine/Metabolic History: Hyponatremia possibly secondary to CHF. Hypo albuminemia. Hyperkalemia. Hematologic History: Reports: Anemia, Other (See Below). Denies: Blood Transfusion(s) Other Hematologic History: Chronic anemia likely secondary to his renal disease. Thrombocytopenia initially diagnosed on 02/02/2020. Immunologic History: Denies: AIDS, HIV, SLE Oncologic (Cancer) History: Reports: Basal Cell Carcinoma, Other (See Below). 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 Dermatologic History: Reports: Seborrheic Dermatitis, Other (See Below). Denies: Eczema, Psoriasis Other Dermatologic History: Chronic dermatitis. - Infectious Disease History Infectious Disease History: Reports: Chicken Pox, Mumps. Denies: C-Difficile, Measles, Meningitis, Mononucleosis, MRSA, Rubella, Shingles, TB, VRE - Past Surgical History Head Surgeries/Procedures: Reports: None HEENT Surgical History: Reports: Adenoidectomy, Cataract Surgery, Tonsillectomy, Other (See Below). Denies: Eye Surgery, Laser Surgery, LASIK, Myringotomy w Tube(s), Naso-Sinus Surgery, Oral Surgery Other HEENT Surgeries/Procedures: Tonsillectomy and adenoidectomy as a child. Bilateral cataract surgery in 2014. Cardiovascular Surgical History: Reports: AAA Repair, Pacer, Other (See Below). Denies: Coronary Artery Bypass, Coronary Artery Stent, Varicose Other Cardiovascular Surgeries/Procedures: AAA repair on 03/03/99. Respiratory Surgical History: Reports: None. Denies: Thoracentesis GI Surgical History: Reports: Appendectomy, Colonoscopy, Hernia, Abdominal, Other (See Below). Denies: Cholecystectomy, EGD, Hernia, Inguinal, Hernia Repair/Other, Polypectomy Other GI Surgeries/Procedures: Ventral abdominal incisional hernia repair on 01/12/01 after previous AAA repair. Appendectomy in 1966. Colonoscopy in his 50s. Male Surgical History: Denies: Circumcision, TURP-Transurethral Resection of Prostate, Vasectomy Endocrine Surgical History: Reports: None. Denies: Thyroid Biopsy Neurological Surgical History: Reports: Discectomy, Lumbar Spine, Spinal Fusion, Other (See Below). Denies: C-Spine, Laminectomy, Scoliosis, Thoracic Spine Other Neurological Surgeries/Procedures: Spinal fusion of the lumbar spine in 1992 with previous lumbar surgery in the 1980s. Musculoskeletal Surgical History: Reports: Other (See Below). Denies: Carpal Tunnel, Ganglion Cyst, Joint Replacement, ORIF, Shoulder Surgery Other Musculoskeletal Surgeries/Procedures:: Right arm tendon repair in 1972. Oncologic Surgical History: Reports: Other (See Below) Other Oncologic Surgeries/Procedures: Excision of basal cell carcinoma from the left lateral nose region by Mohs procedure on 05/16/12. Dermatological Surgical History: Reports: Other (See Below) Other Dermatological Surgeries/Procedures: As above - Past Imaging History Past Imaging History: Reports: Cardiac Echo (By patient history with no records available), Venous Doppler ([facility] [place] by patient history) Social & Family History - Family History HEENT: Reports: None. Denies: Glaucoma, Macular Degeneration, Retinal Detachment Cardiac: Reports: High Cholesterol, Hypertension, Other (See Below). Denies: Afib, Aneurysm, Arrhythmia, Blood Clots/VTE/DVT, CAD, Heart Failure, KS, Syncope Other Cardiac Family History: Brother with hypertension and hyperlipidemia and at age 91 from old age. Respiratory: Reports: None. Denies: Asthma, COPD, PE, Pneumothorax, Sleep Apnea GI: Reports: None. Denies: Celiac Disease, Cholelithiasis, Colon Polyps, GERD, GI bleed, Inflammatory Bowel Disease, Irritable Bowel Syndrome, PUD : Reports: None. Denies: Renal Calculus, Renal Disease/Insufficiency OBGYN: Reports: None. Denies: Endometriosis, Recurrent Spontaneous Musculoskeletal: Reports: None. Denies: Gout, RA, SLE Neurological: Reports: None. Denies: Alzheimers Disease, CVA, Dementia, Migraines, Parkinson's, Seizure, TIA Psychiatric: Reports: None. Denies: Abuse, Victim of, ADD, Anxiety, Depression, Psych Hospitalization(s), PTSD, Suicide Attempt Endocrine/Metabolic: Reports: None. Denies: Diabetes, Type I, Diabetes, type II, Diabetes Mellitus, Type 3c, Hypothyroidism, IDDM Hematologic: Reports: None. Denies: SLE Immunologic: Reports: None. Denies: AIDS, HIV, SLE Dermatologic: Reports: None. Denies: Eczema, Psoriasis Oncologic: Reports: None. Denies: Colon, Hodgkin's Lymphoma, Leukemia, Lung, Lymphoma, Non-Hodgkin's Lymphoma, Prostate, Skin - Tobacco Use Tobacco Use Status *Q: Former Tobacco User Tobacco Use Within Last Twelve Months: No Years of Tobacco use: 35 Packs/Tins Daily: 3 Packs/Tins Daily Comment: No tobacco use since 1989. Used Tobacco, but Quit: Yes Smoking Cessation Information Provided To Patient: No Second Hand Smoke Exposure: No Second Hand Smoke Education Provided: No - Caffeine Use Caffeine Use: Reports: Coffee (2 cups/day), Tea (Occasional). Denies: Energy Drinks, Soda - Alcohol Use Alcohol Use History: Yes Days Per Week of Alcohol Use: 0 Number of Drinks Per Day: 0 Number of Drinks Per Day Comment: Problems with alcohol abuse in his 20-50s with no use since age 57. No history of DWI or alcohol treatment. Total Drinks Per Week: 0 Alcohol Use in Last Twelve Months: No - Recreational Drug Use Recreational Drug Use: No Recreational Drug Type: Denies: Amphetamines (Speed), Cocaine, Heroin, Inhalants (Glues, Solvents, Aerosols), LSD (Acid), Marijuana/Hashish, Methamphetamine, Morphine, Oxycodone - Living Situation & Occupation Living situation: Reports: (1953, 3 children), with Family () Occupation: Retired (Retired at age 43 from the ) ED ROS GENERAL - Review of Systems Review Of Systems: Comprehensive ROS is negative, except as noted in HPI. ED EXAM, GENERAL - Physical Exam Exam: See Below Exam Limited By: No Limitations General Appearance: Alert, WD/WN, No Apparent Distress Eye Exam: Right Eye: EOMI (Stable by history and exam right-sided strabismus convergence), Bilateral Eye: Normal Fundi, Normal Inspection (No nystagmus. Patient is wearing glasses), PERRL Ears: Normal External Exam, Normal Canal (Although cutaneous horn just outside the inferior right EAC), Normal TMs, Hearing Loss (Mild bilateral presbycusis) Nose: Normal Inspection, Normal Mucosa, No Blood Throat/Mouth: Normal Inspection, Normal Lips, Normal Teeth, Normal Gums, Normal Oropharynx, Normal Voice, No Airway Compromise. No: Dysphagia, Perioral Cyanosis Head: Atraumatic, Normocephalic. No: Facial Swelling, Facial Tenderness, Sinus Tenderness Neck: Supple, Non-Tender, Full Range of Motion, Carotid Bruit (Mild bilateral carotid bruits versus transmitted heart sounds.). No: Lymphadenopathy (L), Lymphadenopathy (R), Thyromegaly Respiratory/Chest: No Respiratory Distress, No Accessory Muscle Use, Chest Non- Tender, Rales (Mild bilateral basilar). No: Pleural Rub, Retractions Cardiovascular: Normal Peripheral Pulses, Regular Rate, Rhythm (Although occasional sinus arrhythmia by heart monitor has prolonged), No Edema, No Gallop, No JVD, No Rub, Systolic Murmur (1/6 ALEXANDRU of the aortic and mitral valves). No: Gallop/S3, Gallop/S4, Friction Rub Peripheral Pulses: 2+: Radial (L), Radial (R), Dorsalis Pedis (L), Dorsalis Pedis (R) GI/Abdominal: Normal Bowel Sounds, Soft, Non-Tender, No Organomegaly, No Distention, No Abnormal Bruit, No Mass, Pelvis Stable. No: Guarding (Male) Exam: Deferred Rectal (Males) Exam: Deferred Back Exam: Normal Inspection, Full Range of Motion. No: CVA Tenderness (L), CVA Tenderness (R), Muscle Spasm Extremities: Normal Inspection, Normal Range of Motion, Non-Tender, No Pedal Edema, Normal Capillary Refill. No: Rico's Sign Neurological: Alert, Oriented, CN II-XII Intact, Normal Cognition, Normal Gait, Normal Reflexes (Negative Babinski's, finger to nose, and pronator rotation tests. No evidence of facial paresis, tongue deviation, orthostasis, etc.. Excellent reverse thought processes.), No Motor/Sensory Deficits, Other (Nonspecific generalized weakness) Psychiatric: Normal Affect Skin Exam: Warm, Dry, Intact, Normal Color, No Rash, Ecchymosis (Moderate ecchymosis on the extensor surfaces of the hands bilaterally and flexor surface of the left forearm possibly secondary to previous blood draws?), Other (Occasional seborrheic keratosis with right auricular cutaneous horn as above). No: Diaphoretic, Petechiae, Wound/Incision #1 Interpretation EKG Date: 04/23/20 Time: 14:33 Rhythm: Other (Moderate sinus arrhythmia) Rate (Beats/Min): 91 [place]: Normal (Neutral cardiac axis) P-Wave: Present QRS: Normal (0.08 seconds) ST-T: Normal QT: Normal AR/PQ Interval: 0.21 seconds represent a stable first-degree AV block with poor R wave progression in the anterior leads Comparison: Change From Previous EKG (Increased sinus arrhythmia since last EKG on 02/03/2020) EKG Interpretation Comments: 1. No acute ischemic changes 2. Sinus arrhythmia 3. Stable first-degree AV block Course - Vital Signs Last Recorded V/S: Last Vital Signs Temp 38.0 C 04/23/20 15:00 Pulse 86 04/23/20 15:14 Resp 20 04/23/20 15:14 BP 143/71 H 04/23/20 15:14 Pulse Ox 96 04/23/20 15:14 Vital Signs - 24 hr 04/23/20 04/23/20 04/23/20 14:15 14:23 15:00 Temperature [ 38.4 C H Oral] Temperature [ 38.0 C Temporal] Pulse, 93 85 Peripheral [ Pulse Oximetry] Respiratory 18 20 Rate Blood Pressure 151/73 H 138/84 [Left Upper Arm ] Blood Pressure [Right Upper Arm] O2 Sat by Pulse 97 96 Oximetry O2 Sat by Pulse 96 Oximetry [Room Air] 04/23/20 15:14 Temperature [ Oral] Temperature [ Temporal] Pulse, 86 Peripheral [ Pulse Oximetry] Respiratory 20 Rate Blood Pressure [Left Upper Arm ] Blood Pressure 143/71 H [Right Upper Arm] O2 Sat by Pulse 96 Oximetry O2 Sat by Pulse Oximetry [Room Air] - Orders/Labs/Meds Orders: Active Orders 24 hr Category Date Time Status Bladder Scan [RC] ASDIRECTED Care 04/23/20 14:23 Active Cardiac Monitoring [RC] CONTINUOUS Care 04/23/20 14:19 Active Communication Order [RC] ROUTINE Care 04/23/20 14:19 Active EKG Documentation Completion [RC] ASDIRECTED Care 04/23/20 14:20 Active Oxygen Therapy, ED [RC] PRN Care 04/23/20 14:19 Active Peripheral IV Care [RC] . DIRECTED Care 04/23/20 14:20 Active Pulse Oximetry [RC] CONTINUOUS Care 04/23/20 14:19 Active Up With Assistance [RC] ASDIRECTED Care 04/23/20 14:19 Active Nothing Per Oral Diet [DIET] Diet 04/23/20 Breakfast Active Chest 1V Frontal [CR] Stat Exams 04/23/20 14:19 Ordered Chest PE [Ang Chest] [CT] Stat Exams 04/23/20 16:17 Ordered CULTURE BLOOD [BC] Stat Lab 04/23/20 14:20 Ordered CULTURE BLOOD [BC] Stat Lab 04/23/20 14:20 Ordered CULTURE SPUTUM + SMEAR [RM] Urgent Lab 04/23/20 14:19 Ordered CULTURE URINE [RM] Routine Lab 04/23/20 14:36 Ordered Sodium Chloride 0.9% [Saline Flush] Med 04/23/20 14:19 Active 10 ml FLUSH ASDIRECTED PRN Blood Culture x2 Reflex Set [OM.PC] Stat Oth 04/23/20 14:19 Ordered Isolation [COMM] Routine Oth 04/23/20 14:20 Active Obtain Past Medical Record [OM.PC] Stat Oth 04/23/20 14:19 Active Peripheral IV Insertion Adult [OM.PC] Stat Oth 04/23/20 14:19 Ordered Resuscitation Status Routine Resus Stat 04/23/20 14:19 Ordered EKG 12 Lead [EK] Stat Ther 04/23/20 14:19 Ordered Medication Orders Sodium Chloride (Saline Flush) 10 ml FLUSH ASDIRECTED PRN PRN Reason: Keep Vein Open Labs: Laboratory Tests 04/23/20 04/23/20 04/23/20 Range/Units 14:35 14:35 14:45 WBC 3.5 L (4.0-10.2) K/uL RBC 3.71 L (4.33-5.41) M/uL Hgb 10.9 L (13.1-16.8) g/dL Hct 32.6 L (39.0-49.0) % MCV 87.9 (84.0-98.0) fL MCH 29.4 (28.2-33.3) pg MCHC 33.4 (31.7-36.0) g/dL RDW 14.8 H (11.2-14.1) % Plt Count 75 L (150-350) K/uL Neut % (Auto) 44.5 L (45.0-80.0) % Lymph % (Auto) 29.9 (10.0-50.0) % [place] % (Auto) 22.5 H (2.0-14.0) % Eos % (Auto) 1.4 (0.0-5.0) % Baso % (Auto) 1.7 (0.0-2.0) % Neut # (Auto) 1.56 (1.40-7.00) K/uL Lymph # (Auto) 1.05 (0.50-3.50) K/uL [place] # (Auto) 0.79 (0.00-1.00) K/uL Eos # (Auto) 0.05 (0.00-0.50) K/uL Baso # (Auto) 0.06 (0.00-0.20) K/uL PT (9.5-12.0) SEC INR APTT (24.5-32.8) SEC D-Dimer, Quantitative (0-400) ng/mL Sodium (136-145) mmol/L Potassium (3.5-5.1) mmol/L Chloride (98-107) mmol/L Carbon Dioxide (21.0-32.0) mmol/L BUN (7-18) mg/dL Creatinine (0.51-1.17) mg/dL Est Cr Clr Drug Dosing mL/min Estimated GFR (MDRD) mL/min Glucose (74-106) mg/dL Lactic Acid (0.4-2.0) mmol/L Calcium (8.5-10.1) mg/dL Magnesium (1.8-2.4) mg/dL Total Bilirubin (0.2-1.0) mg/dL AST (15-37) U/L ALT (12-78) U/L Alkaline Phosphatase (46-116) IU/L Creatine Kinase (26-308) U/L Creatine Kinase Index (0.0-2.5) % CK-MB (CK-2) (0.00-3.60) ng/mL Troponin I (0.000-0.056) ng/mL NT-Pro-B Natriuret Pep (0-125) pg/mL Total Protein (6.4-8.2) g/dL Albumin (3.4-5.0) g/dL TSH, Ultra Sensitive (0.358-3.740) mIU/mL Specimen Type Urincc Urine Color Yellow Urine Appearance Clear Urine pH 7.0 (5.0-9.0) Ur Specific [place] 1.020 (1.005-1.030) Urine Protein 100 H (NEGATIVE) mg/dL Urine Glucose (UA) Negative (NEGATIVE) mg/dL Urine Ketones Negative (NEGATIVE) mg/dL Urine Occult Blood Moderate H (NEGATIVE) Urine Nitrite Negative (NEGATIVE) Urine Bilirubin Negative (NEGATIVE) Urine Urobilinogen 0.2 (0.2-1.0) E.U./dL Ur Leukocyte Esterase Negative (NEGATIVE) Urine RBC 5-10 H /HPF Urine WBC Not seen /HPF Ur Epithelial Cells Occasional /LPF Urine Bacteria Few (NONE TO FEW) /HPF SARS-CoV-2 RNA (JUSTIN) Positive H (NEGATIVE) 04/23/20 04/23/20 04/23/20 Range/Units 14:45 14:45 14:45 WBC (4.0-10.2) K/uL RBC (4.33-5.41) M/uL Hgb (13.1-16.8) g/dL Hct (39.0-49.0) % MCV (84.0-98.0) fL MCH (28.2-33.3) pg MCHC (31.7-36.0) g/dL RDW (11.2-14.1) % Plt Count (150-350) K/uL Neut % (Auto) (45.0-80.0) % Lymph % (Auto) (10.0-50.0) % [place] % (Auto) (2.0-14.0) % Eos % (Auto) (0.0-5.0) % Baso % (Auto) (0.0-2.0) % Neut # (Auto) (1.40-7.00) K/uL Lymph # (Auto) (0.50-3.50) K/uL [place] # (Auto) (0.00-1.00) K/uL Eos # (Auto) (0.00-0.50) K/uL Baso # (Auto) (0.00-0.20) K/uL PT 10.3 (9.5-12.0) SEC INR 1.0 APTT 28.8 (24.5-32.8) SEC D-Dimer, Quantitative 3090 H (0-400) ng/mL Sodium 134 L (136-145) mmol/L Potassium 4.2 (3.5-5.1) mmol/L Chloride 98 (98-107) mmol/L Carbon Dioxide 25.7 (21.0-32.0) mmol/L BUN 25 H (7-18) mg/dL Creatinine 1.38 H (0.51-1.17) mg/dL Est Cr Clr Drug Dosing 38.47 mL/min Estimated GFR (MDRD) 49 mL/min Glucose 108 H (74-106) mg/dL Lactic Acid (0.4-2.0) mmol/L Calcium 9.0 (8.5-10.1) mg/dL Magnesium 1.9 (1.8-2.4) mg/dL Total Bilirubin 0.3 (0.2-1.0) mg/dL AST 21 (15-37) U/L ALT 19 (12-78) U/L Alkaline Phosphatase 47 (46-116) IU/L Creatine Kinase 111 (26-308) U/L Creatine Kinase Index 1.1 (0.0-2.5) % CK-MB (CK-2) 1.20 (0.00-3.60) ng/mL Troponin I 0.007 (0.000-0.056) ng/mL NT-Pro-B Natriuret Pep 2331 H (0-125) pg/mL Total Protein 7.9 (6.4-8.2) g/dL Albumin 4.2 (3.4-5.0) g/dL TSH, Ultra Sensitive 1.104 (0.358-3.740) mIU/mL Specimen Type Urine Color Urine Appearance Urine pH (5.0-9.0) Ur Specific [place] (1.005-1.030) Urine Protein (NEGATIVE) mg/dL Urine Glucose (UA) (NEGATIVE) mg/dL Urine Ketones (NEGATIVE) mg/dL Urine Occult Blood (NEGATIVE) Urine Nitrite (NEGATIVE) Urine Bilirubin (NEGATIVE) Urine Urobilinogen (0.2-1.0) E.U./dL Ur Leukocyte Esterase (NEGATIVE) Urine RBC /HPF Urine WBC /HPF Ur Epithelial Cells /LPF Urine Bacteria (NONE TO FEW) /HPF SARS-CoV-2 RNA (JUSTIN) (NEGATIVE) 04/23/20 Range/Units 14:45 WBC (4.0-10.2) K/uL RBC (4.33-5.41) M/uL Hgb (13.1-16.8) g/dL Hct (39.0-49.0) % MCV (84.0-98.0) fL MCH (28.2-33.3) pg MCHC (31.7-36.0) g/dL RDW (11.2-14.1) % Plt Count (150-350) K/uL Neut % (Auto) (45.0-80.0) % Lymph % (Auto) (10.0-50.0) % [place] % (Auto) (2.0-14.0) % Eos % (Auto) (0.0-5.0) % Baso % (Auto) (0.0-2.0) % Neut # (Auto) (1.40-7.00) K/uL Lymph # (Auto) (0.50-3.50) K/uL [place] # (Auto) (0.00-1.00) K/uL Eos # (Auto) (0.00-0.50) K/uL Baso # (Auto) (0.00-0.20) K/uL PT (9.5-12.0) SEC INR APTT (24.5-32.8) SEC D-Dimer, Quantitative (0-400) ng/mL Sodium (136-145) mmol/L Potassium (3.5-5.1) mmol/L Chloride (98-107) mmol/L Carbon Dioxide (21.0-32.0) mmol/L BUN (7-18) mg/dL Creatinine (0.51-1.17) mg/dL Est Cr Clr Drug Dosing mL/min Estimated GFR (MDRD) mL/min Glucose (74-106) mg/dL Lactic Acid 1.3 (0.4-2.0) mmol/L Calcium (8.5-10.1) mg/dL Magnesium (1.8-2.4) mg/dL Total Bilirubin (0.2-1.0) mg/dL AST (15-37) U/L ALT (12-78) U/L Alkaline Phosphatase (46-116) IU/L Creatine Kinase (26-308) U/L Creatine Kinase Index (0.0-2.5) % CK-MB (CK-2) (0.00-3.60) ng/mL Troponin I (0.000-0.056) ng/mL NT-Pro-B Natriuret Pep (0-125) pg/mL Total Protein (6.4-8.2) g/dL Albumin (3.4-5.0) g/dL TSH, Ultra Sensitive (0.358-3.740) mIU/mL Specimen Type Urine Color Urine Appearance Urine pH (5.0-9.0) Ur Specific [place] (1.005-1.030) Urine Protein (NEGATIVE) mg/dL Urine Glucose (UA) (NEGATIVE) mg/dL Urine Ketones (NEGATIVE) mg/dL Urine Occult Blood (NEGATIVE) Urine Nitrite (NEGATIVE) Urine Bilirubin (NEGATIVE) Urine Urobilinogen (0.2-1.0) E.U./dL Ur Leukocyte Esterase (NEGATIVE) Urine RBC /HPF Urine WBC /HPF Ur Epithelial Cells /LPF Urine Bacteria (NONE TO FEW) /HPF SARS-CoV-2 RNA (JUSTIN) (NEGATIVE) Meds: Medications Generic Name Dose Route Start Last Admin Trade Name Freq PRN Reason Stop Dose Admin Sodium Chloride 10 ml 04/23/20 14:19 Saline Flush FLUSH ASDIRECTED PRN Keep Vein Open Discontinued Medications Generic Name Dose Route Start Last Admin Trade Name Freq PRN Reason Stop Dose Admin Acetaminophen 650 mg 04/23/20 14:19 04/23/20 14:52 Tylenol PO 04/23/20 14:20 650 mg ONETIME ONE Administration - Radiology Interpretation Free Text/Narrative:: 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 Chest x-ray, portable shows moderate to severe pulmonary obstructive disease with additional moderate pulmonary fibrosis making evaluation of infiltrates somewhat difficult. Possible mild bilateral lower pulmonary infiltrates with no pneumothorax, cardiomegaly, CHF, etc. 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 Departure - Departure Time of Disposition: 16:25 Disposition: Admitted As Inpatient 68 Condition: Fair Clinical Impression: COPD (chronic obstructive pulmonary disease), D-dimer, elevated, Hypoalbuminemia, Renal insufficiency, CHF, Congestive heart failure, Leukopenia, Anemia, PAC (premature atrial contraction), Thrombocytopenia, Pancytopenia, Strep pharyngitis, Urinary incontinence, Streptococcus pneumoniae, Lab test positive for detection of COVID-19 virus - Discharge Information *PRESCRIPTION DRUG MONITORING PROGRAM REVIEWED*: Not Applicable *COPY OF PRESCRIPTION DRUG MONITORING REPORT IN PATIENT KADEN: Not Applicable Referrals: PCP,None [Primary Care Provider] - Forms: ED Department Discharge Care Plan Goals: See plan Sepsis Event Note (ED) - Focused Exam Vital Signs: Vital Signs Temp Temp Pulse Resp BP BP Pulse Ox 04/23/20 15:14 86 20 143/71 H 96 04/23/20 15:00 38.0 C 85 20 138/84 96 04/23/20 14:23 04/23/20 14:15 38.4 C H 93 18 151/73 H 97 Pulse Ox 04/23/20 15:14 04/23/20 15:00 04/23/20 14:23 96 04/23/20 14:15 - Problem List & Annotations (1) Lab test positive for detection of COVID-19 virus SNOMED Code(s): 0298395735463409 Code(s): U07.1 - COVID-19 Status: Acute Priority: High Current Visit: Yes Onset Date: 04/23/20 Annotation/Comment:: Telephone consultation at 15:43 and then at 15:47 hours with Angeles, youth care professional at the [facility] in [place]. The [facility] does not have any beds available and they did give approval for hospitalization in this or another facility. Various therapeutic options were discussed with the patient with the patient also discussing this with his by telephone. They are requesting that he stay in this facility for further care. Isolation precautions as per standard protocol. His O2 sats are excellent with no indication for additional aggressive treatment for his COVID-19, including oral dexamethasone, remdesivir, etc. He will receive oral Pepcid as GI prophylaxis, which should also be beneficial for this infection, and he is already on lisinopril, which is also beneficial as an angiotensin receptor inhibitor. Oral doxycycline for anti-inflammatory effect and treatment of his pneumonia and possible beginning UTI. The patient agrees to notify his concerning her recommendations of immediate testing for COVID-19 and initiation of quarantine, etc. protocol. (2) Streptococcus pneumoniae SNOMED Code(s): 38558793 Code(s): A49.1 - STREPTOCOCCAL INFECTION, UNSPECIFIED SITE Status: Acute Priority: High Current Visit: Yes Onset Date: 04/23/20 Annotation/Comment:: As above. Oral doxycycline with additional IV Zithromax. Inhaler rather than nebulizer treatment secondary to his current COVID infection. (3) COPD (chronic obstructive pulmonary disease) SNOMED Code(s): 26190297 Code(s): J44.9 - CHRONIC OBSTRUCTIVE PULMONARY DISEASE, UNSPECIFIED Status: Chronic Priority: High Current Visit: No Annotation/Comment:: Patient has not had to increase his inhaler use recently with 1-2-day history of progressive mostly clear productive cough. Possible bilateral lower quadrant pulmonary infiltrates, however note significant pulmonary fibrosis as above. Suspect strep pneumonia based on positive strep screen. Attempt to obtain sputum for c ulture and sensitivity. Note positive COVID-19 screen. Qualifiers: COPD type: emphysema Emphysema type: panlobular Qualified Code(s): J43.1 - Panlobular emphysema (4) D-dimer, elevated SNOMED Code(s): 996769997 Code(s): R79.89 - OTHER SPECIFIED ABNORMAL FINDINGS OF BLOOD CHEMISTRY Status: Acute Priority: High Current Visit: No Onset Date: 02/02/20 Annotation/Comment:: Chronic d-dimer elevation initially diagnosed in this facility on 02/02/2020 with apparent previous negative work-up as above. Note current infection, etc. CTA of the chest to be conducted with caution secondary to his renal insufficiency and significantly progressive d-dimer elevation. He is not a good candidate for anticoagulation secondary to his thrombocytopenia, however. (5) PAC (premature atrial contraction) SNOMED Code(s): 499256044 Code(s): I49.1 - ATRIAL PREMATURE DEPOLARIZATION Status: Acute Priority: Medium Current Visit: No Onset Date: 04/23/20 Annotation/Comment:: Newly diagnosed PACs and sinus arrhythmia with current pacemaker therapy for unknown reason. Note history of CHF, however. (6) Pancytopenia SNOMED Code(s): 007749204 Code(s): D61.818 - OTHER PANCYTOPENIA Status: Acute Priority: High Current Visit: No Onset Date: 04/23/20 Annotation/Comment:: Note known previous history of stable chronic anemia likely secondary to his renal disease with newly diagnosed leukopenia possibly secondary to infection. Additional known thrombocytopenia during our evaluation in this facility on 02/02/2020. Co nsider hemeoncology consultation, further work-up, etc. (7) Renal insufficiency SNOMED Code(s): 761487646, 364611182 Code(s): N28.9 - DISORDER OF KIDNEY AND URETER, UNSPECIFIED Status: Chronic Priority: Medium Current Visit: No Annotation/Comment:: Stable per medical records. Continue to observe closely. (8) Strep pharyngitis SNOMED Code(s): 27754460 Code(s): J02.0 - STREPTOCOCCAL PHARYNGITIS Status: Acute Priority: High Current Visit: No Onset Date: 04/23/20 Annotation/Comment:: As above (9) CHF, Congestive heart failure SNOMED Code(s): 06726660 Code(s): I50.9 - HEART FAILURE, UNSPECIFIED Status: Chronic Priority: Medium Current Visit: No Onset Date: 02/02/20 Annotation/Comment:: No chest pain or anginal type symptoms with chest pain protocol not initiated in the emergency room. EKG and cardiac enzymes are normal, including troponin I with only mild change in troponin I secondary to his progressive BNP elevation. Consider outpatient echocardiogram, if this has not been conducted recently. IV Lasix therapy with caution for now secondary to patient's current infection. Repeat cardiac enzymes and EKG in the a.m. 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 Bladder scan showed a residual urine of 111 cc with no evidence of significant urinary retention. Note that patient did have some possible bilateral kidney pain yesterday evening with minimal microhematuria and no direct evidence of UTI symptoms despite his fever. Urine culture has been set up for culture and sensitivity. Antibiotic therapy as above. Further urology consultation depending on his clinical course. Qualifiers: Urinary Incontinence type: other incontinence Qualified Code(s): N39.498 - Other specified urinary incontinence - Problem List Review Problem List Initiated/Reviewed/Updated: Yes - My Orders Last 24 Hours: My Active Orders 04/23/20 Breakfast Nothing Per Oral Diet [DIET] 04/23/20 14:19 Cardiac Monitoring [RC] CONTINUOUS Communication Order [RC] ROUTINE Oxygen Therapy, ED [RC] PRN Pulse Oximetry [RC] CONTINUOUS Up With Assistance [RC] ASDIRECTED Chest 1V Frontal [CR] Stat CULTURE SPUTUM + SMEAR [RM] Urgent Sodium Chloride 0.9% [Saline Flush] 10 ml FLUSH ASDIRECTED PRN Blood Culture x2 Reflex Set [OM.PC] Stat Obtain Past Medical Record [OM.PC] Stat Peripheral IV Insertion Adult [OM.PC] Stat Resuscitation Status Routine EKG 12 Lead [EK] Stat 04/23/20 14:20 EKG Documentation Completion [RC] ASDIRECTED Peripheral IV Care [RC] . DIRECTED CULTURE BLOOD [BC] Stat CULTURE BLOOD [BC] Stat Isolation [COMM] Routine 04/23/20 14:23 Bladder Scan [RC] ASDIRECTED 04/23/20 14:36 CULTURE URINE [RM] Routine 04/23/20 16:17 Chest PE [Ang Chest] [CT] Stat - Assessment/Plan Admission H&P: Please use this note as an admission H&P Last 24 Hours: My Active Orders 04/23/20 Breakfast Nothing Per Oral Diet [DIET] 04/23/20 14:19 Cardiac Monitoring [RC] CONTINUOUS Communication Order [RC] ROUTINE Oxygen Therapy, ED [RC] PRN Pulse Oximetry [RC] CONTINUOUS Up With Assistance [RC] ASDIRECTED Chest 1V Frontal [CR] Stat CULTURE SPUTUM + SMEAR [RM] Urgent Sodium Chloride 0.9% [Saline Flush] 10 ml FLUSH ASDIRECTED PRN Blood Culture x2 Reflex Set [OM.PC] Stat Obtain Past Medical Record [OM.PC] Stat Peripheral IV Insertion Adult [OM.PC] Stat Resuscitation Status Routine EKG 12 Lead [EK] Stat 04/23/20 14:20 EKG Documentation Completion [RC] ASDIRECTED Peripheral IV Care [RC] . DIRECTED CULTURE BLOOD [BC] Stat CULTURE BLOOD [BC] Stat Isolation [COMM] Routine 04/23/20 14:23 Bladder Scan [RC] ASDIRECTED 04/23/20 14:36 CULTURE URINE [RM] Routine 04/23/20 16:17 Chest PE [Ang Chest] [CT] Stat Assessment:: As above Plan: As above. Extensive precautions were given to the patient and his , who are in agreement with the treatment plan. The patient will require about 3-4 days of inpatient/acute care secondary to multiple health problems as above.
[2020-04-23 15:23] LABS: PTT,PARTIAL THROMBOPLSTIN TIME 28.8 SEC (24.5-32.8)
[2020-04-23] MEDS ORDERED: Iopamidol 755 Mg/ML 100 ML Bottle IVPUSH STA (16:22)
[2020-04-23] MEDS ORDERED: Temazepam 15 MG Cap PO PRN (16:38)
[2020-04-23] MEDS ORDERED: Polyethylene Glycol 3350 Powder 17 GM Packet PO PRN (16:40)
[2020-04-23] MEDS ORDERED: Triamcinolone Acetonide 0.1% Crm 15 GM Tube TOP PRN (16:40)
[2020-04-23] MEDS ORDERED: Loratadine 10 MG Tab PO PRN (16:40)
[2020-04-23] MEDS: Sodium Chloride 0.9% 10 ML Syringe FLUSH SCH (18:13)
[2020-04-23] MEDS: Furosemide 20 MG/2 ML VIAL IVPUSH SCH (18:14)
[2020-04-23] MEDS: Azithromycin 500 MG in Sodium Chloride 0.9% 250 ML IV SCH (18:14)
[2020-04-23] MEDS: Dextromethorphan/guaiFENesin 600-30 MG Tab.ER PO SCH (18:15)
[2020-04-23] MEDS: Famotidine 20 MG Tab PO SCH (18:15)
[2020-04-23] MEDS: Potassium Chloride 20 MEQ Tab.ER PO SCH (18:15)
[2020-04-23] MEDS: Doxycycline 100 MG Cap PO SCH (18:27)
[2020-04-23] MEDS: Acetaminophen 325 MG Tab PO PRN (19:49)
[2020-04-23] MEDS: Lisinopril 20 MG Tab PO SCH (19:49)
[2020-04-23] MEDS: Albuterol/Ipratropium 4 GM Inhalation Spray INH SCH (19:51)
[2020-04-23] MEDS: Finasteride 5 MG Tab PO SCH (19:51)
[2020-04-23] MEDS: Heparin Sodium 5,000 Units/ML Vial SUBCUT SCH (19:58)
[2020-04-24] MEDS: Furosemide 20 MG/2 ML VIAL IVPUSH SCH ×2 (04:29→17:11)
[2020-04-24] MEDS: Sodium Chloride 0.9% 10 ML Syringe FLUSH SCH ×2 (04:29→17:11)
[2020-04-24] MEDS: Acetaminophen 325 MG Tab PO PRN ×2 (04:29→17:12)
[2020-04-24 07:45] LABS: PTT,PARTIAL THROMBOPLSTIN TIME 33.4 SEC (24.5-32.8)
[2020-04-24] MEDS: Albuterol/Ipratropium 4 GM Inhalation Spray INH SCH ×4 (07:48→20:38)
[2020-04-24] MEDS: Heparin Sodium 5,000 Units/ML Vial SUBCUT SCH (07:59)
[2020-04-24] MEDS: Potassium Chloride 20 MEQ Tab.ER PO SCH ×2 (08:05→17:12)
[2020-04-24] MEDS: Lactobacillus Rhamnosus GG (Probiotic) Cap PO SCH (08:05)
[2020-04-24] MEDS: Famotidine 20 MG Tab PO SCH ×2 (08:05→17:12)
[2020-04-24] MEDS: Dextromethorphan/guaiFENesin 600-30 MG Tab.ER PO SCH ×2 (08:05→17:12)
[2020-04-24] MEDS: amLODIPine 5 MG Tab PO SCH (08:05)
[2020-04-24] MEDS: Aspirin 81 MG Tab.EC PO SCH (08:06)
[2020-04-24] MEDS: Doxycycline 100 MG Cap PO SCH (08:06)
[2020-04-24] MEDS: Levothyroxine 100 MCG Tab PO SCH (08:06)
[2020-04-24] MEDS: Multivitamin Tab PO SCH (08:06)
--- NOTE | 2020-04-24 09:02 | PCM.PN ---
- General Info Date of Service: 04/24/20 Admission Dx/Problem (Free Text): 1. Positive COVID-19 2. Bilateral pneumonia 3. COPD 4. D-dimer elevation 5. Pancytopenia Functional Status: Reports: Pain Controlled, Tolerating Diet, Ambulating, Urinating (Bedside urinal with no urinary incontinence), Incentive Spirometry. Denies: New Symptoms Pain Score: 0 - Review of Systems General: Reports: Fever (Improved with patient afebrile when he is not wearing his jacket this morning), Weakness (Slow improvement), Fatigue (Mild), Appetite (Adequate). Denies: Malaise, Chills, Night Sweats HEENT: Reports: Glasses, Other (Stable right-sided strabismus convergence). Denies: Dysphasia, Ear Pain, Eye Pain, Headaches, Post Nasal Drip, Sinus Congestion, Sore Throat, Rhinitis, Visual Changes Pulmonary: Reports: Cough, Sputum (Clear by history). Denies: Shortness of Breath, Pleuritic Chest Pain, Hemoptysis, Wheezing Cardiovascular: Reports: No Symptoms. Denies: Chest Pain, Palpitations, Dyspnea on Exertion, Orthopnea, PND, Edema, Lightheadedness Gastrointestinal: Reports: No Symptoms. Denies: Abdominal Pain, Constipation, Decreased Appetite, Diarrhea, Difficulty Swallowing, Flatus, Hematochezia, Melena, Nausea, Vomiting Genitourinary: Reports: No Symptoms. Denies: Dysuria, Frequency, Burning, Urgen cy, Incontinence, Hematuria, Retention, Flank Pain Musculoskeletal: Reports: No Symptoms. Denies: Neck Pain, Shoulder Pain, Arm Pain, Back Pain, Leg Pain Skin: Reports: Bruising (Stable). Denies: Diaphoresis, Rash Neurological: Reports: Weakness (Slow improvement as above). Denies: Confusion, Dizziness, Headache, Numbness, Paresthesia, Tingling Psychiatric: Reports: No Symptoms. Denies: Confusion, Depression, Anxiety, Agitation, Cravings - Patient Data Vitals - Most Recent: Last Vital Signs Temp 37.5 C 04/24/20 08:00 Pulse 61 04/24/20 08:00 Resp 20 04/24/20 08:00 BP 123/77 04/24/20 08:05 Pulse Ox 94 L 04/24/20 08:00 Vital Signs - 24 hr 04/23/20 04/23/20 04/23/20 14:15 14:23 15:00 Temperature [ 38.4 C H Oral] Temperature [ 38.0 C Temporal] Pulse, 93 85 Peripheral [ Pulse Oximetry] Respiratory 18 20 Rate Blood Pressure Blood Pressure 151/73 H 138/84 [Left Upper Arm ] Blood Pressure [Right Upper Arm] O2 Sat by Pulse 97 96 Oximetry O2 Sat by Pulse 96 Oximetry [Room Air] 04/23/20 04/23/20 04/23/20 15:14 15:40 16:38 Temperature [ Oral] Temperature [ Temporal] Pulse, 86 82 Peripheral [ Pulse Oximetry] Respiratory 20 18 Rate Blood Pressure Blood Pressure [Left Upper Arm ] Blood Pressure 143/71 H 140/56 L [Right Upper Arm] O2 Sat by Pulse 96 95 96 Oximetry O2 Sat by Pulse 98 Oximetry [Room Air] 04/23/20 04/23/20 04/23/20 16:45 19:31 19:49 Temperature [ Oral] Temperature [ 37.8 C 38.1 C Temporal] Pulse, 79 85 Peripheral [ Pulse Oximetry] Respiratory 18 20 Rate Blood Pressure 128/67 Blood Pressure 128/67 [Left Upper Arm ] Blood Pressure 145/71 H [Right Upper Arm] O2 Sat by Pulse 95 97 Oximetry O2 Sat by Pulse Oximetry [Room Air] 04/24/20 04/24/20 04/24/20 00:00 04:00 08:00 Temperature [ Oral] Temperature [ 37.9 C 37.8 C 37.5 C Temporal] Pulse, 66 66 61 Peripheral [ Pulse Oximetry] Respiratory 18 18 20 Rate Blood Pressure Blood Pressure 149/69 H 158/66 H [Left Upper Arm ] Blood Pressure 123/77 [Right Upper Arm] O2 Sat by Pulse 97 95 94 L Oximetry O2 Sat by Pulse Oximetry [Room Air] 04/24/20 08:05 Temperature [ Oral] Temperature [ Temporal] Pulse, Peripheral [ Pulse Oximetry] Respiratory Rate Blood Pressure 123/77 Blood Pressure [Left Upper Arm ] Blood Pressure [Right Upper Arm] O2 Sat by Pulse Oximetry O2 Sat by Pulse Oximetry [Room Air] Weight - Most Recent: 67.495 kg I&O - Last 24 Hours: Intake & Output 04/23/20 04/24/20 04/24/20 22:59 06:59 14:59 Intake Total 340 300 360 Output Total 800 800 Balance -460 -500 360 Imaging Impressions - Last 24 Hours: 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 with occasional PACs and escape paced beats with no other significant arrhythmia Lab Results Last 24 Hours: Laboratory Results - last 24 hr 04/23/20 04/23/20 04/23/20 Range/Units 14:35 14:35 14:45 WBC 3.5 L (4.0-10.2) K/uL RBC 3.71 L (4.33-5.41) M/uL Hgb 10.9 L (13.1-16.8) g/dL Hct 32.6 L (39.0-49.0) % MCV 87.9 (84.0-98.0) fL MCH 29.4 (28.2-33.3) pg MCHC 33.4 (31.7-36.0) g/dL RDW 14.8 H (11.2-14.1) % Plt Count 75 L (150-350) K/uL Neut % (Auto) 44.5 L (45.0-80.0) % Lymph % (Auto) 29.9 (10.0-50.0) % Tripp % (Auto) 22.5 H (2.0-14.0) % Eos % (Auto) 1.4 (0.0-5.0) % Baso % (Auto) 1.7 (0.0-2.0) % Neut # (Auto) 1.56 (1.40-7.00) K/uL Lymph # (Auto) 1.05 (0.50-3.50) K/uL Tripp # (Auto) 0.79 (0.00-1.00) K/uL Eos # (Auto) 0.05 (0.00-0.50) K/uL Baso # (Auto) 0.06 (0.00-0.20) K/uL PT (9.5-12.0) SEC INR APTT (24.5-32.8) SEC D-Dimer, Quantitative (0-400) ng/mL Sodium (136-145) mmol/L Potassium (3.5-5.1) mmol/L Chloride (98-107) mmol/L Carbon Dioxide (21.0-32.0) mmol/L BUN (7-18) mg/dL Creatinine (0.51-1.17) mg/dL Est Cr Clr Drug Dosing mL/min Estimated GFR (MDRD) mL/min Glucose (74-106) mg/dL Lactic Acid (0.4-2.0) mmol/L Calcium (8.5-10.1) mg/dL Magnesium (1.8-2.4) mg/dL Total Bilirubin (0.2-1.0) mg/dL AST (15-37) U/L ALT (12-78) U/L Alkaline Phosphatase (46-116) IU/L Creatine Kinase (26-308) U/L Creatine Kinase Index (0.0-2.5) % CK-MB (CK-2) (0.00-3.60) ng/mL Troponin I (0.000-0.056) ng/mL NT-Pro-B Natriuret Pep (0-125) pg/mL Total Protein (6.4-8.2) g/dL Albumin (3.4-5.0) g/dL TSH, Ultra Sensitive (0.358-3.740) mIU/mL Specimen Type Urincc Urine Color Yellow Urine Appearance Clear Urine pH 7.0 (5.0-9.0) Ur Specific [place] 1.020 (1.005-1.030) Urine Protein 100 H (NEGATIVE) mg/dL Urine Glucose (UA) Negative (NEGATIVE) mg/dL Urine Ketones Negative (NEGATIVE) mg/dL Urine Occult Blood Moderate H (NEGATIVE) Urine Nitrite Negative (NEGATIVE) Urine Bilirubin Negative (NEGATIVE) Urine Urobilinogen 0.2 (0.2-1.0) E.U./dL Ur Leukocyte Esterase Negative (NEGATIVE) Urine RBC 5-10 H /HPF Urine WBC Not seen /HPF Ur Epithelial Cells Occasional /LPF Urine Bacteria Few (NONE TO FEW) /HPF SARS-CoV-2 RNA (JUSTIN) Positive H (NEGATIVE) 04/23/20 04/23/20 04/23/20 Range/Units 14:45 14:45 14:45 WBC (4.0-10.2) K/uL RBC (4.33-5.41) M/uL Hgb (13.1-16.8) g/dL Hct (39.0-49.0) % MCV (84.0-98.0) fL MCH (28.2-33.3) pg MCHC (31.7-36.0) g/dL RDW (11.2-14.1) % Plt Count (150-350) K/uL Neut % (Auto) (45.0-80.0) % Lymph % (Auto) (10.0-50.0) % Tripp % (Auto) (2.0-14.0) % Eos % (Auto) (0.0-5.0) % Baso % (Auto) (0.0-2.0) % Neut # (Auto) (1.40-7.00) K/uL Lymph # (Auto) (0.50-3.50) K/uL Tripp # (Auto) (0.00-1.00) K/uL Eos # (Auto) (0.00-0.50) K/uL Baso # (Auto) (0.00-0.20) K/uL PT 10.3 (9.5-12.0) SEC INR 1.0 APTT 28.8 (24.5-32.8) SEC D-Dimer, Quantitative 3090 H (0-400) ng/mL Sodium 134 L (136-145) mmol/L Potassium 4.2 (3.5-5.1) mmol/L Chloride 98 (98-107) mmol/L Carbon Dioxide 25.7 (21.0-32.0) mmol/L BUN 25 H (7-18) mg/dL Creatinine 1.38 H (0.51-1.17) mg/dL Est Cr Clr Drug Dosing 38.47 mL/min Estimated GFR (MDRD) 49 mL/min Glucose 108 H (74-106) mg/dL Lactic Acid (0.4-2.0) mmol/L Calcium 9.0 (8.5-10.1) mg/dL Magnesium 1.9 (1.8-2.4) mg/dL Total Bilirubin 0.3 (0.2-1.0) mg/dL AST 21 (15-37) U/L ALT 19 (12-78) U/L Alkaline Phosphatase 47 (46-116) IU/L Creatine Kinase 111 (26-308) U/L Creatine Kinase Index 1.1 (0.0-2.5) % CK-MB (CK-2) 1.20 (0.00-3.60) ng/mL Troponin I 0.007 (0.000-0.056) ng/mL NT-Pro-B Natriuret Pep 2331 H (0-125) pg/mL Total Protein 7.9 (6.4-8.2) g/dL Albumin 4.2 (3.4-5.0) g/dL TSH, Ultra Sensitive 1.104 (0.358-3.740) mIU/mL Specimen Type Urine Color Urine Appearance Urine pH (5.0-9.0) Ur Specific [place] (1.005-1.030) Urine Protein (NEGATIVE) mg/dL Urine Glucose (UA) (NEGATIVE) mg/dL Urine Ketones (NEGATIVE) mg/dL Urine Occult Blood (NEGATIVE) Urine Nitrite (NEGATIVE) Urine Bilirubin (NEGATIVE) Urine Urobilinogen (0.2-1.0) E.U./dL Ur Leukocyte Esterase (NEGATIVE) Urine RBC /HPF Urine WBC /HPF Ur Epithelial Cells /LPF Urine Bacteria (NONE TO FEW) /HPF SARS-CoV-2 RNA (JUSTIN) (NEGATIVE) 04/23/20 04/24/20 04/24/20 Range/Units 14:45 07:20 07:20 WBC (4.0-10.2) K/uL RBC (4.33-5.41) M/uL Hgb (13.1-16.8) g/dL Hct (39.0-49.0) % MCV (84.0-98.0) fL MCH (28.2-33.3) pg MCHC (31.7-36.0) g/dL RDW (11.2-14.1) % Plt Count (150-350) K/uL Neut % (Auto) (45.0-80.0) % Lymph % (Auto) (10.0-50.0) % Tripp % (Auto) (2.0-14.0) % Eos % (Auto) (0.0-5.0) % Baso % (Auto) (0.0-2.0) % Neut # (Auto) (1.40-7.00) K/uL Lymph # (Auto) (0.50-3.50) K/uL Tripp # (Auto) (0.00-1.00) K/uL Eos # (Auto) (0.00-0.50) K/uL Baso # (Auto) (0.00-0.20) K/uL PT 10.4 (9.5-12.0) SEC INR 1.0 APTT 33.4 H (24.5-32.8) SEC D-Dimer, Quantitative 2900 H (0-400) ng/mL Sodium (136-145) mmol/L Potassium (3.5-5.1) mmol/L Chloride (98-107) mmol/L Carbon Dioxide (21.0-32.0) mmol/L BUN (7-18) mg/dL Creatinine (0.51-1.17) mg/dL Est Cr Clr Drug Dosing mL/min Estimated GFR (MDRD) mL/min Glucose (74-106) mg/dL Lactic Acid 1.3 (0.4-2.0) mmol/L Calcium (8.5-10.1) mg/dL Magnesium (1.8-2.4) mg/dL Total Bilirubin (0.2-1.0) mg/dL AST (15-37) U/L ALT (12-78) U/L Alkaline Phosphatase (46-116) IU/L Creatine Kinase (26-308) U/L Creatine Kinase Index (0.0-2.5) % CK-MB (CK-2) (0.00-3.60) ng/mL Troponin I (0.000-0.056) ng/mL NT-Pro-B Natriuret Pep (0-125) pg/mL Total Protein (6.4-8.2) g/dL Albumin (3.4-5.0) g/dL TSH, Ultra Sensitive (0.358-3.740) mIU/mL Specimen Type Urine Color Urine Appearance Urine pH (5.0-9.0) Ur Specific [place] (1.005-1.030) Urine Protein (NEGATIVE) mg/dL Urine Glucose (UA) (NEGATIVE) mg/dL Urine Ketones (NEGATIVE) mg/dL Urine Occult Blood (NEGATIVE) Urine Nitrite (NEGATIVE) Urine Bilirubin (NEGATIVE) Urine Urobilinogen (0.2-1.0) E.U./dL Ur Leukocyte Esterase (NEGATIVE) Urine RBC /HPF Urine WBC /HPF Ur Epithelial Cells /LPF Urine Bacteria (NONE TO FEW) /HPF SARS-CoV-2 RNA (JUSTIN) (NEGATIVE) 04/24/20 04/24/20 Range/Units 07:20 07:20 WBC 4.0 (4.0-10.2) K/uL RBC 3.58 L (4.33-5.41) M/uL Hgb 10.4 L (13.1-16.8) g/dL Hct 31.3 L (39.0-49.0) % MCV 87.4 (84.0-98.0) fL MCH 29.1 (28.2-33.3) pg MCHC 33.2 (31.7-36.0) g/dL RDW 14.7 H (11.2-14.1) % Plt Count 63 L (150-350) K/uL Neut % (Auto) 26.2 L (45.0-80.0) % Lymph % (Auto) 42.5 (10.0-50.0) % Tripp % (Auto) 29.5 H (2.0-14.0) % Eos % (Auto) 0.8 (0.0-5.0) % Baso % (Auto) 1.0 (0.0-2.0) % Neut # (Auto) 1.05 L (1.40-7.00) K/uL Lymph # (Auto) 1.70 (0.50-3.50) K/uL Tripp # (Auto) 1.18 H (0.00-1.00) K/uL Eos # (Auto) 0.03 (0.00-0.50) K/uL Baso # (Auto) 0.04 (0.00-0.20) K/uL PT (9.5-12.0) SEC INR APTT (24.5-32.8) SEC D-Dimer, Quantitative (0-400) ng/mL Sodium 134 L (136-145) mmol/L Potassium 4.1 (3.5-5.1) mmol/L Chloride 97 L (98-107) mmol/L Carbon Dioxide 24.9 (21.0-32.0) mmol/L BUN 26 H (7-18) mg/dL Creatinine 1.47 H (0.51-1.17) mg/dL Est Cr Clr Drug Dosing 35.80 mL/min Estimated GFR (MDRD) 45 mL/min Glucose 104 (74-106) mg/dL Lactic Acid (0.4-2.0) mmol/L Calcium 8.5 (8.5-10.1) mg/dL Magnesium (1.8-2.4) mg/dL Total Bilirubin 0.4 (0.2-1.0) mg/dL AST 20 (15-37) U/L ALT 18 (12-78) U/L Alkaline Phosphatase 41 L (46-116) IU/L Creatine Kinase 118 (26-308) U/L Creatine Kinase Index 0.6 (0.0-2.5) % CK-MB (CK-2) 0.70 (0.00-3.60) ng/mL Troponin I 0.031 (0.000-0.056) ng/mL NT-Pro-B Natriuret Pep 2410 H (0-125) pg/mL Total Protein 7.0 (6.4-8.2) g/dL Albumin 3.7 (3.4-5.0) g/dL TSH, Ultra Sensitive (0.358-3.740) mIU/mL Specimen Type Urine Color Urine Appearance Urine pH (5.0-9.0) Ur Specific [place] (1.005-1.030) Urine Protein (NEGATIVE) mg/dL Urine Glucose (UA) (NEGATIVE) mg/dL Urine Ketones (NEGATIVE) mg/dL Urine Occult Blood (NEGATIVE) Urine Nitrite (NEGATIVE) Urine Bilirubin (NEGATIVE) Urine Urobilinogen (0.2-1.0) E.U./dL Ur Leukocyte Esterase (NEGATIVE) Urine RBC /HPF Urine WBC /HPF Ur Epithelial Cells /LPF Urine Bacteria (NONE TO FEW) /HPF SARS-CoV-2 RNA (JUSTIN) (NEGATIVE) Dieter Results Last 24 Hours: Microbiology 04/23/20 18:30 Stool Occult Blood (DIETER) - Final Stool / Feces 04/23/20 14:35 Influenza Type A Antigen Screen - Final Nasal, Unspecified NEGATIVE INFLUENZA A VIRUS AG REFERENCE RANGE: NEGATIVE Influenza Type B Antigen Screen - Final NEGATIVE INFLUENZA B VIRUS AG REFERENCE RANGE: NEGATIVE 04/23/20 14:35 Group A Streptococcus Rapid Screen - Final Throat Positive For Group A Strep Ag Blood culture results x2 still pending Urine culture and sensitivity results still pending Above Hemoccult is negative. Med Orders - Current: Current Medications Acetaminophen (Tylenol) 650 mg PO Q4H PRN PRN Reason: Pain/Fever Last Admin: 04/24/20 04:29 Dose: 650 mg Documented by: Albuterol/Ipratropium (Combivent Respimat) 0 gm INH QID [facility] Last Admin: 04/24/20 07:48 Dose: 2 puff Documented by: Amlodipine Besylate (Norvasc) 2.5 mg PO DAILY [facility] Last Admin: 04/24/20 08:05 Dose: 2.5 mg Documented by: Aspirin (Halfprin) 81 mg PO WITHBREAKFAST [facility] Last Admin: 04/24/20 08:06 Dose: 81 mg Documented by: Doxycycline Hyclate (Vibramycin) 100 mg PO BID [facility] Last Admin: 04/24/20 08:06 Dose: 100 mg Documented by: Famotidine (Pepcid) 20 mg PO BID [facility] Last Admin: 04/24/20 08:05 Dose: 20 mg Documented by: Finasteride (Proscar) 5 mg PO BEDTIME [facility] Last Admin: 04/23/20 19:51 Dose: 5 mg Documented by: Furosemide (Lasix) 20 mg IVPUSH Q12H [facility] Last Admin: 04/24/20 04:29 Dose: 20 mg Documented by: Guaifenesin/Dextromethorphan (Mucinex Dm Er 600-30 Mg) 1 tab PO BID [facility] Last Admin: 04/24/20 08:05 Dose: 1 tab Documented by: Heparin Sodium (Porcine) (Heparin Sodium) 5,000 units SUBCUT Q12H [facility] Last Admin: 04/24/20 07:59 Dose: 5,000 units Documented by: Azithromycin 500 mg/ Sodium (Chloride) 250 mls @ 250 mls/hr IV Q24H [facility] Last Admin: 04/23/20 18:14 Dose: 250 mls/hr Documented by: Lactobacillus Rhamnosus (Culturelle) 1 cap PO DAILY [facility] Last Admin: 04/24/20 08:05 Dose: 1 cap Documented by: Levothyroxine Sodium (Synthroid) 100 mcg PO DAILY [facility] Last Admin: 04/24/20 08:06 Dose: 100 mcg Documented by: Lisinopril (Prinivil) 20 mg PO BEDTIME [facility] Last Admin: 04/23/20 19:49 Dose: 20 mg Documented by: Loratadine (Claritin) 10 mg PO DAILY PRN PRN Reason: Allergies Multivitamins/Minerals/Vitamin C (Tab-A-Krystina) 1 tab PO DAILY [facility] Last Admin: 04/24/20 08:06 Dose: 1 tab Documented by: Polyethylene Glycol (Miralax) 17 gm PO DAILY PRN PRN Reason: Constipation Potassium Chloride (Klor-Con M20) 20 meq PO BID [facility] Last Admin: 04/24/20 08:05 Dose: 20 meq Documented by: Sodium Chloride (Saline Flush) 10 ml FLUSH ASDIRECTED PRN PRN Reason: Keep Vein Open Sodium Chloride (Saline Flush) 10 ml FLUSH Q12H [facility] Last Admin: 04/24/20 04:29 Dose: 10 ml Documented by: Temazepam (Restoril) 15 mg PO BEDTIME PRN PRN Reason: Insomnia Triamcinolone Acetonide (Triamcinolone Acetonide 0.1% Crm) 0 gm TOP BID PRN PRN Reason: Pain (mild 1-3) Discontinued Medications Acetaminophen (Tylenol) 650 mg PO ONETIME ONE Stop: 04/23/20 14:20 Last Admin: 04/23/20 14:52 Dose: 650 mg Documented by: Iopamidol (Isovue-370 (76%)) 100 ml IVPUSH ONETIME STA Stop: 04/23/20 16:23 Last Admin: 04/23/20 16:58 Dose: 100 ml Documented by: - Exam Quality Assessment: DVT Prophylaxis (Low-dose Coumadin). No: Supplemental Oxygen, Central Line/PICC, Urine Catheter, Skin Breakdown, Restraints General: Alert, Oriented, Cooperative, No Acute Distress HEENT: Pupils Equal, Pupils Reactive, Mucous Membr. Moist/Hazard, Other (The patient is wearing glasses). No: EOMI (Stable moderate right-sided strabismus convergence), Scleral Icterus Neck: Supple, Trachea Midline, No JVD, No Thyromegaly, Carotid Bruit (Stable mild bilateral carotid bruits versus transmitted heart sounds). No: Lymphadeno finesse Lungs: Rales (Stable mild bilateral basilar rales). No: Normal Respiratory Effort, Rhonchi, Rub, Wheezing Cardiovascular: Regular Rate, Irregular Rhythm (Occasional extrasystoles secondary to sinus arrhythmia, PACs, and paced beats as above), Murmurs (Stable 1/6 ALEXANDRU of aortic and mitral valves). No: Rubs GI/Abdominal Exam: Normal Bowel Sounds, Soft, Non-Tender, No Organomegaly, No Distention, No Abnormal Bruit, No Mass. No: Guarding (Male) Exam: Deferred Back Exam: Normal Inspection, Full Range of Motion. No: CVA Tenderness (L), CVA Tenderness (R), Muscle Spasm Extremities: Normal Inspection, Normal Range of Motion, Non-Tender, No Pedal Edema, Normal Capillary Refill. No: Pedal Edema Peripheral Pulses: 2+: Radial (L), Radial (R), Dorsalis Pedis (L), Dorsalis Pedis (R) Skin: Warm, Dry, Intact, Ecchymosis (Stable ecchymosis of the left forearm flexor surface and extensor surfaces of the hands bilaterally. No petechiae.), Other (Stable cutaneous horn over the inferior right auricle at the EAC). No: Rash Neurological: No New Focal Deficit, Other (No clinical orthostasis) Psy/Mental Status: Alert, Normal Affect, Normal Mood. No: Agitated, Hallucinations, Withdrawal Symptoms #1 Interpretation EKG Date: 04/24/20 Time: 07:16 Rhythm: Other (Moderate sinus arrhythmia with occasional PACs) Rate (Beats/Min): 68 [place]: Normal (Neutral cardiac axis) P-Wave: Present QRS: Normal (0.09 seconds) ST-T: Normal QT: Normal MD/PQ Interval: 0.22 seconds representing a mildly progressive first-degree AV block with new poor R wave progression in the anterior leads Comparison: Change From Previous EKG (As above since 04/25/2020) EKG Interpretation Comments: 1. No acute ischemic changes 2. Sinus arrhythmia with PACs 3. Mildly progressive first-degree AV block Sepsis Event Note - Evaluation Sepsis Screening Result: No Definite Risk - Focused Exam Vital Signs: Vital Signs Temp Pulse Resp BP BP BP Pulse Ox 04/24/20 08:05 123/77 04/24/20 08:00 37.5 C 61 20 123/77 94 L 04/24/20 04:00 37.8 C 66 18 158/66 H 95 04/24/20 00:00 37.9 C 66 18 149/69 H 97 - Problem List & Annotations (1) Lab test positive for detection of COVID-19 virus SNOMED Code(s): 9983889003225340 Code(s): U07.1 - COVID-19 Status: Acute Priority: High Current Visit: Yes Onset Date: 04/23/20 Annotation/Comment:: Patient is afebrile this morning with persistent fatigue and generalized weakness with slow improvement. Telephone consultation at 15:43 and then at 15:47 hours on 04/23/2020 with [place], rn intensive care unit at the [facility] in [place]. The [facility] does not have any beds available, and they did give approval for hospitalization in this or another facility. Various therapeutic options were discussed with the patient with the patient also discussing this with his by telephone. They are requesting that he stay in this facility for further care. Isolation precautions as per standard protocol. His O2 sats are excellent with no indication for additional aggressive treatment for his COVID-19, including oral dexamethasone, remdesivir, etc., at this time. He did initially receive oral Pepcid as GI prophylaxis, which should also be beneficial for this infection, with no confusion or other complications. Consider decreasing this medication on 04/25 secondary to his age and renal function. The patient is already on lisinopril, which is also beneficial as an angiotensin receptor inhibitor for treatment of his COVID-19 infection. Oral doxycycline for anti-inflammatory effect and treatment of his pneumonia and possible beginning UTI. The patient agrees to notify his and other recent close contacts concerning my recommendation of immediate testing for COVID-19 and initiation of quarantine, etc. protocol. (2) Streptococcus pneumoniae SNOMED Code(s): 75912450 Code(s): A49.1 - STREPTOCOCCAL INFECTION, UNSPECIFIED SITE Status: Acute Priority: High Current Visit: Yes Onset Date: 04/23/20 Annotation/Comment:: As above. Oral doxycycline with additional IV Zithromax. Inhaler rather than nebulizer treatment secondary to his current COVID infection. Chest x-ray to be repeated on 04/25 additional blood work. (3) COPD (chronic obstructive pulmonary disease) SNOMED Code(s): 69201612 Code(s): J44.9 - CHRONIC OBSTRUCTIVE PULMONARY DISEASE, UNSPECIFIED Status: Chronic Priority: High Current Visit: Yes Qualifiers: COPD type: emphysema Emphysema type: panlobular Qualified Code(s): J43.1 - Panlobular emphysema Annotation/Comment:: Patient has not had to increase his inhaler use recently with 1-2-day history of progressive mostly clear productive cough prior to admission. Possible bilateral lower quadrant pulmonary infiltrates, however note significant pulmonary fibrosis as per emergency room note. Suspect strep pneumonia based on positive strep screen, although we are still unable to obtain a sputum for culture and sensitivity. Note positive COVID-19 screen. (4) D-dimer, elevated SNOMED Code(s): 401223930 Code(s): R79.89 - OTHER SPECIFIED ABNORMAL FINDINGS OF BLOOD CHEMISTRY Status: Acute Priority: High Current Visit: Yes Onset Date: 02/02/20 Annotation/Comment:: Chronic d-dimer elevation initially diagnosed in this facility on 02/02/2020 with apparent previous negative work-up as above. Note current infection, etc. CTA of the chest was conducted shortly after admission with negative evaluation for acute PE, however incidental finding of a 6 mm right upper lobe pulmonary nodule with recommended repeat CT scan in 6-12 months. Only mild increase of patient's creatinine after this procedure with relatively stable renal insufficiency. Significantly progressive d-dimer elevation prior to admission with some improvement with low-dose subcu heparin therapy. He is not a good candidate for anticoagulation secondary to his thrombocytopenia, however. Note some mild progressive moderate thrombocytopenia on 04/24/2020 with no evidence of acute bleeding. Venous Doppler studies of the lower extremities are pending this morning. Strongly consider discontinuation of low-dose subcu epinephrine, if this evaluation is negative secondary to significant risk factors from his thrombocytopenia. No clinical evidence of DVT or PE with continuous good O2 saturations on room air. Secondary to his thrombocytopenia he is not a candidate for oral anticoagulation therapy at discharge. (5) PAC (premature atrial contraction) SNOMED Code(s): 291154787 Code(s): I49.1 - ATRIAL PREMATURE DEPOLARIZATION Status: Acute Priority: Medium Current Visit: Yes Onset Date: 04/23/20 Annotation/Comment:: Stable mild arrhythmia with newly diagnosed PACs and sinus arrhythmia with current pacemaker therapy for unknown reason. Note history of CHF, however. No chest pain or anginal type symptoms. Continue to observe for now. (6) Pancytopenia SNOMED Code(s): 776008779 Code(s): D61.818 - OTHER PANCYTOPENIA Status: Acute Priority: High Current Visit: Yes Onset Date: 04/23/20 Annotation/Comment:: Note known previous history of stable chronic anemia likely secondary to his renal disease with newly diagnosed leukopenia possibly secondary to current infection, although normal WBCs on 04/24/2020.. Additional known thrombocytopenia during o ur evaluation in this facility on 02/02/2020, which was relatively stable at time of admission, however somewhat progressive on 04/24 as above.. Consider hemeoncology consultation, further work-up, etc. (7) Renal insufficiency SNOMED Code(s): 189411422, 511836478 Code(s): N28.9 - DISORDER OF KIDNEY AND URETER, UNSPECIFIED Status: Chronic Priority: Medium Current Visit: Yes Annotation/Comment:: Stable per medical records and during this hospitalization as above. Continue to observe closely. Note low-dose IV Lasix therapy. (8) Strep pharyngitis SNOMED Code(s): 71685032 Code(s): J02.0 - STREPTOCOCCAL PHARYNGITIS Status: Acute Priority: High Current Visit: Yes Onset Date: 04/23/20 Annotation/Comment:: As above (9) CHF, Congestive heart failure SNOMED Code(s): 02252015 Code(s): I50.9 - HEART FAILURE, UNSPECIFIED Status: Chronic Priority: High Current Visit: Yes Onset Date: 02/02/20 Annotation/Comment:: No chest pain or anginal type symptoms with chest pain protocol not initiated in the emergency room. EKG and cardiac enzymes are normal, including troponin I with only mild change in troponin I secondary to his progressive BNP elevation. Mild progression of his BNP on 04/24 likely secondary to his renal function. Consider outpatient echocardiogram, if this has not been conducted recently, however note NO CODE STATUS. IV Lasix therapy with caution for now secondary to patient's current infection. 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 Above. Bladder scan showed a residual urine of 111 cc with no evidence of significant urinary retention. No urinary incontinence since admission. Note that patient did have some possible bilateral kidney pain prior to admission with minimal microhematuria and no direct evidence of UTI symptoms despite his fever. Urine culture has been set up for culture and sensitivity. Antibiotic therapy as above. Further urology consultation depending on his clinical course. (11) Need for comfort care SNOMED Code(s): 727774627, [id number] Code(s): [id number] - Status: Chronic Priority: Medium Current Visit: Yes Annotation/Comment:: Confirmed with the patient on admission. Prognosis extremely guarded secondary to multiple risk factors, current COVID-19 infection, etc. - Problem List Review Problem List Initiated/Reviewed/Updated: Yes - My Orders Last 24 Hours: My Active Orders 04/23/20 14:19 Cardiac Monitoring [RC] Q2HR Chest 1V Frontal [CR] Stat CULTURE SPUTUM + SMEAR [RM] Urgent Sodium Chloride 0.9% [Saline Flush] 10 ml FLUSH ASDIRECTED PRN Blood Culture x2 Reflex Set [OM.PC] Stat Peripheral IV Insertion Adult [OM.PC] Stat Resuscitation Status Routine EKG 12 Lead [EK] Stat 04/23/20 14:20 EKG Documentation Completion [RC] ASDIRECTED Peripheral IV Care [RC] 08,20 Isolation [COMM] Routine 04/23/20 14:23 Bladder Scan [RC] ASDIRECTED 04/23/20 14:35 CULTURE URINE [RM] Routine 04/23/20 14:45 CULTURE BLOOD [BC] Stat 04/23/20 14:55 CULTURE BLOOD [BC] Stat 04/23/20 16:17 Chest PE [Ang Chest] [CT] Stat 04/23/20 16:30 Comfort Measures [OM.PC] Routine 04/23/20 16:38 Antiembolic Devices [RC] 08,20 Communication Order [RC] 08,12,16,20 Communication Order [RC] PER UNIT ROUTINE Height and Weight [RC] DAILY Intake and Output Strict [RC] 06,18 Oxygen Therapy [RC] .PRN Pulse Oximetry [RC] .PRN RT Post Treatment Assessment [RC] Click to Edit RT Pre-Treatment Assessment [RC] Click to Edit Vital Signs [RC] Q4HR Acetaminophen [TylenoL] 650 mg PO Q4H PRN Temazepam [Restoril] 15 mg PO BEDTIME PRN CHF Questionnaire [COMM] Routine DVT/VTE Prophylaxis Reflex [OM.PC] Routine GM Immunization Reflex [OM.PC] Click to Edit 04/23/20 16:39 Communication, Vaccine [RC] PER UNIT ROUTINE VTE/DVT Education [RC] DAILY Vaccines to be Administered [RC] .DISCHARGE 04/23/20 16:40 Loratadine [Claritin] 10 mg PO DAILY PRN Triamcinolone Acetonide [Triamcinolone Acetonide 0.1% Crm] 0 gm TOP BID PRN polyethylene glycoL 3350 [MiraLAX] 17 gm PO DAILY PRN 04/23/20 16:45 Sodium Chloride 0.9% [Saline Flush] 10 ml FLUSH Q12H 04/23/20 17:00 Azithromycin [Zithromax] 500 mg Sodium Chloride 0.9% [Normal Saline] 250 ml IV Q24H Furosemide [Lasix] 20 mg IVPUSH Q12H 04/23/20 Dinner Fluid Restriction [DIET] 04/23/20 18:00 Dextromethorphan/guaiFENesin [Mucinex DM ER 600-30 MG] 1 tab PO BID Doxycycline [Vibramycin] 100 mg PO BID Famotidine [Pepcid] 20 mg PO BID Potassium Chloride [Klor-Con M20] 20 meq PO BID 04/23/20 20:00 Albuterol/Ipratropium [Combivent Respimat] See Dose Instructions INH QID Finasteride [Proscar] 5 mg PO BEDTIME Heparin Sodium 5,000 units SUBCUT Q12H lisinopriL [Prinivil] 20 mg PO BEDTIME 04/24/20 05:11 Venous Doppler Lwr Ext Bi [US] Urgent EKG 12 Lead [EK] Routine 04/24/20 08:00 Aspirin [Halfprin] 81 mg PO WITHBREAKFAST Lactobacillus Rhamnosus GG [Culturelle] 1 cap PO DAILY Levothyroxine [Synthroid] 100 mcg PO DAILY Multivitamins [Tab-A-Krystina] 1 tab PO DAILY amLODIPine [Norvasc] 2.5 mg PO DAILY 04/25/20 05:11 Chest 1V Frontal [CR] Routine CBC WITH AUTO DIFF [HEME] Routine CK W CKMB [CHEM] Routine COMPREHENSIVE METABOLIC PN,CMP [CHEM] Routine D-DIMER QUANTITATIVE [COAG] Routine INR,PT,PROTHROMBIN TIME [COAG] Routine PRO B-TYPE NATRIUR PEPT,BNPPRO [CHEM] Routine PTT,PARTIAL THROMBOPLSTIN TIME [COAG] Routine TROPONIN I [CHEM] Routine - Assessment Assessment:: As above - Plan Plan:: As above. Extensive precautions were given to the patient, who is in agreement with the treatment plan. The patient will require about 2-3 days of inpatient/acute care secondary to multiple health problems as above.
[2020-04-24] MEDS: Azithromycin 500 MG in Sodium Chloride 0.9% 250 ML IV SCH (17:11)
[2020-04-24] MEDS: Doxycycline Monohydrate 100 MG Cap PO SCH (17:12)
[2020-04-24] MEDS: Lisinopril 20 MG Tab PO SCH (20:37)
[2020-04-24] MEDS: Finasteride 5 MG Tab PO SCH (20:37)
[2020-04-25] MEDS: Furosemide 20 MG/2 ML VIAL IVPUSH SCH ×2 (04:21→17:09)
[2020-04-25] MEDS: Sodium Chloride 0.9% 10 ML Syringe FLUSH SCH ×2 (04:21→17:09)
[2020-04-25 07:59] LABS: PTT,PARTIAL THROMBOPLSTIN TIME 30.1 SEC (24.5-32.8)
[2020-04-25] MEDS: Dextromethorphan/guaiFENesin 600-30 MG Tab.ER PO SCH ×2 (08:31→17:08)
[2020-04-25] MEDS: Potassium Chloride 20 MEQ Tab.ER PO SCH ×2 (08:31→17:08)
[2020-04-25] MEDS: Doxycycline Monohydrate 100 MG Cap PO SCH ×2 (08:31→17:08)
[2020-04-25] MEDS: Lactobacillus Rhamnosus GG (Probiotic) Cap PO SCH (08:32)
[2020-04-25] MEDS: Multivitamin Tab PO SCH (08:32)
[2020-04-25] MEDS: Aspirin 81 MG Tab.EC PO SCH (08:32)
[2020-04-25] MEDS: Levothyroxine 100 MCG Tab PO SCH (08:32)
[2020-04-25] MEDS: Famotidine 20 MG Tab PO SCH ×2 (08:32→17:08)
[2020-04-25] MEDS: Albuterol/Ipratropium 4 GM Inhalation Spray INH SCH ×4 (08:34→20:29)
[2020-04-25] MEDS: amLODIPine 5 MG Tab PO SCH (08:35)
[2020-04-25] MEDS: Sodium Chloride 0.9% 10 ML Syringe FLUSH PRN ×2 (08:38→20:31)
[2020-04-25] MEDS ORDERED: Bisacodyl 5 MG Tab PO ONE (14:59)
--- NOTE | 2020-04-25 15:06 | PCM.PN ---
- General Info Date of Service: 04/25/20 Admission Dx/Problem (Free Text): 1. Positive COVID-19 2. Bilateral pneumonia 3. COPD 4. D-dimer elevation 5. Pancytopenia Functional Status: Reports: Pain Controlled, Tolerating Diet, Ambulating, Urinating, New Symptoms, Incentive Spirometry Pain Score: 0 - Review of Systems General: Reports: Weakness (Slowly improving). Denies: Fever, Fatigue, Malaise, Chills, Night Sweats, Appetite (Good) HEENT: Reports: Glasses. Denies: Dysphasia, Ear Pain, Eye Pain, Headaches, Post Nasal Drip, Sinus Congestion, Sore Throat, Rhinitis, Visual Changes Pulmonary: Reports: Cough, Sputum (Clear). Denies: Shortness of Breath, Pleuritic Chest Pain, Hemoptysis, Wheezing Cardiovascular: Reports: No Symptoms. Denies: Chest Pain, Palpitations, Dyspnea on Exertion, Orthopnea, PND, Edema, Lightheadedness Gastrointestinal: Reports: Constipation. Denies: Decreased Appetite, Diarrhea, Difficulty Swallowing, Flatus, Hematochezia, Melena, Nausea, Vomiting Genitourinary: Reports: No Symptoms. Denies: Dysuria, Frequency, Burning, Pain, Urgency, Hematuria, Retention, Flank Pain Musculoskeletal: Reports: No Symptoms. Denies: Neck Pain, Shoulder Pain, Arm Pain, Back Pain, Leg Pain Skin: Reports: No Symptoms. Denies: Diaphoresis, Bruising Neurological: Reports: No Symptoms Psychiatric: Reports: No Symptoms. Denies: Confusion, Depression, Anxiety, Agitation, Cravings, Hallucinations - Patient Data Vitals - Most Recent: Last Vital Signs Temp 37.1 C 04/25/20 12:00 Pulse 100 04/25/20 12:00 Resp 19 04/25/20 12:00 BP 152/64 H 04/25/20 12:00 Pulse Ox 95 04/25/20 12:00 Vital Signs - 24 hr 04/24/20 04/24/20 04/24/20 16:00 20:00 20:37 Temperature [ 37.2 C Oral] Temperature [ 38.3 C H Temporal] Pulse, 72 68 Peripheral [ Pulse Oximetry] Respiratory 20 18 Rate Blood Pressure 144/69 H Blood Pressure 144/69 H [Left Upper Arm ] Blood Pressure 160/86 H [Right Upper Arm] O2 Sat by Pulse 95 95 Oximetry 04/25/20 04/25/20 04/25/20 00:00 04:00 08:00 Temperature [ 37.0 C 37.2 C Oral] Temperature [ 37.0 C Temporal] Pulse, 64 64 76 Peripheral [ Pulse Oximetry] Respiratory 18 18 18 Rate Blood Pressure Blood Pressure 133/80 109/66 [Left Upper Arm ] Blood Pressure 140/89 [Right Upper Arm] O2 Sat by Pulse 96 96 95 Oximetry 04/25/20 04/25/20 08:35 12:00 Temperature [ Oral] Temperature [ 37.1 C Temporal] Pulse, 100 Peripheral [ Pulse Oximetry] Respiratory 19 Rate Blood Pressure 109/66 Blood Pressure 152/64 H [Left Upper Arm ] Blood Pressure [Right Upper Arm] O2 Sat by Pulse 95 Oximetry Weight - Most Recent: 66.814 kg I&O - Last 24 Hours: Intake & Output 04/25/20 04/25/20 04/25/20 06:59 14:59 22:59 Intake Total 150 460 Output Total 200 Balance -50 460 Imaging Impressions - Last 24 Hours: nurse monitoring shows occasional PACs with occasional escape paced beats with otherwise normal sinus rhythm with no other significant arrhythmia. Chest x-ray, portable, shows no cardiomegaly, CHF, or significant pulmonary infiltrates. Bilateral pulmonary scarring/fibrosis with additional mild pulmonary obstructive disease. No pneumothorax. Note status post pacemaker placement. Lab Results Last 24 Hours: Laboratory Results - last 24 hr 04/25/20 04/25/20 04/25/20 Range/Units 07:39 07:39 07:39 WBC 3.4 L (4.0-10.2) K/uL RBC 3.58 L (4.33-5.41) M/uL Hgb 10.4 L (13.1-16.8) g/dL Hct 31.3 L (39.0-49.0) % MCV 87.4 (84.0-98.0) fL MCH 29.1 (28.2-33.3) pg MCHC 33.2 (31.7-36.0) g/dL RDW 14.7 H (11.2-14.1) % Plt Count 57 L (150-350) K/uL Neut % (Auto) 32.2 L (45.0-80.0) % Lymph % (Auto) 36.5 (10.0-50.0) % Ritchie % (Auto) 30.7 H (2.0-14.0) % Eos % (Auto) 0.3 (0.0-5.0) % Baso % (Auto) 0.3 (0.0-2.0) % Neut # (Auto) 1.10 L (1.40-7.00) K/uL Lymph # (Auto) 1.25 (0.50-3.50) K/uL Ritchie # (Auto) 1.05 H (0.00-1.00) K/uL Eos # (Auto) 0.01 (0.00-0.50) K/uL Baso # (Auto) 0.01 (0.00-0.20) K/uL PT 10.6 (9.5-12.0) SEC INR 1.1 APTT 30.1 (24.5-32.8) SEC D-Dimer, Quantitative 3410 H (0-400) ng/mL Sodium (136-145) mmol/L Potassium (3.5-5.1) mmol/L Chloride (98-107) mmol/L Carbon Dioxide (21.0-32.0) mmol/L BUN (7-18) mg/dL Creatinine (0.51-1.17) mg/dL Est Cr Clr Drug Dosing mL/min Estimated GFR (MDRD) mL/min Glucose (74-106) mg/dL Calcium (8.5-10.1) mg/dL Total Bilirubin (0.2-1.0) mg/dL AST (15-37) U/L ALT (12-78) U/L Alkaline Phosphatase (46-116) IU/L Creatine Kinase (26-308) U/L Creatine Kinase Index (0.0-2.5) % CK-MB (CK-2) (0.00-3.60) ng/mL Troponin I (0.000-0.056) ng/mL NT-Pro-B Natriuret Pep (0-125) pg/mL Total Protein (6.4-8.2) g/dL Albumin (3.4-5.0) g/dL 04/25/20 Range/Units 07:39 WBC (4.0-10.2) K/uL RBC (4.33-5.41) M/uL Hgb (13.1-16.8) g/dL Hct (39.0-49.0) % MCV (84.0-98.0) fL MCH (28.2-33.3) pg MCHC (31.7-36.0) g/dL RDW (11.2-14.1) % Plt Count (150-350) K/uL Neut % (Auto) (45.0-80.0) % Lymph % (Auto) (10.0-50.0) % Ritchie % (Auto) (2.0-14.0) % Eos % (Auto) (0.0-5.0) % Baso % (Auto) (0.0-2.0) % Neut # (Auto) (1.40-7.00) K/uL Lymph # (Auto) (0.50-3.50) K/uL Ritchie # (Auto) (0.00-1.00) K/uL Eos # (Auto) (0.00-0.50) K/uL Baso # (Auto) (0.00-0.20) K/uL PT (9.5-12.0) SEC INR APTT (24.5-32.8) SEC D-Dimer, Quantitative (0-400) ng/mL Sodium 136 (136-145) mmol/L Potassium 4.0 (3.5-5.1) mmol/L Chloride 99 (98-107) mmol/L Carbon Dioxide 24.4 (21.0-32.0) mmol/L BUN 32 H (7-18) mg/dL Creatinine 1.48 H (0.51-1.17) mg/dL Est Cr Clr Drug Dosing 33.57 mL/min Estimated GFR (MDRD) 45 mL/min Glucose 105 (74-106) mg/dL Calcium 8.4 L (8.5-10.1) mg/dL Total Bilirubin 0.3 (0.2-1.0) mg/dL AST 29 (15-37) U/L ALT 20 (12-78) U/L Alkaline Phosphatase 37 L (46-116) IU/L Creatine Kinase 182 (26-308) U/L Creatine Kinase Index 0.8 (0.0-2.5) % CK-MB (CK-2) 1.40 (0.00-3.60) ng/mL Troponin I 0.029 (0.000-0.056) ng/mL NT-Pro-B Natriuret Pep 1113 H (0-125) pg/mL Total Protein 7.0 (6.4-8.2) g/dL Albumin 3.6 (3.4-5.0) g/dL Dieter Results Last 24 Hours: Microbiology 04/23/20 14:55 Aerobic Blood Culture - Preliminary Blood - Venous - Lab Draw NO GROWTH AFTER 2 DAYS Anaerobic Blood Culture - Preliminary NO GROWTH AFTER 2 DAYS 04/23/20 14:45 Aerobic Blood Culture - Preliminary Blood - Venous NO GROWTH AFTER 2 DAYS Anaerobic Blood Culture - Preliminary NO GROWTH AFTER 2 DAYS 04/23/20 14:35 Urine Culture - Final Urine, Clean Catch MIXED JACOB SUGGESTIVE OF CONTAMINATION. Med Orders - Current: Current Medications Acetaminophen (Tylenol) 650 mg PO Q4H PRN PRN Reason: Pain/Fever Last Admin: 04/24/20 17:12 Dose: 650 mg Documented by: Albuterol/Ipratropium (Combivent Respimat) 0 gm INH QID [facility] Last Admin: 04/25/20 12:29 Dose: 2 puff Documented by: Amlodipine Besylate (Norvasc) 2.5 mg PO DAILY [facility] Last Admin: 04/25/20 08:35 Dose: 2.5 mg Documented by: Aspirin (Halfprin) 81 mg PO WITHBREAKFAST [facility] Last Admin: 04/25/20 08:32 Dose: 81 mg Documented by: Bisacodyl (Dulcolax) 10 mg PO ONETIME ONE Stop: 04/25/20 15:00 Doxycycline Monohydrate (Doxycycline Monohydrate) 100 mg PO BID [facility] Last Admin: 04/25/20 08:31 Dose: 100 mg Documented by: Famotidine (Pepcid) 20 mg PO BID [facility] Last Admin: 04/25/20 08:32 Dose: 20 mg Documented by: Finasteride (Proscar) 5 mg PO BEDTIME [facility] Last Admin: 04/24/20 20:37 Dose: 5 mg Documented by: Furosemide (Lasix) 20 mg IVPUSH Q12H [facility] Last Admin: 04/25/20 04:21 Dose: 20 mg Documented by: Guaifenesin/Dextromethorphan (Mucinex Dm Er 600-30 Mg) 1 tab PO BID [facility] Last Admin: 04/25/20 08:31 Dose: 1 tab Documented by: Azithromycin 500 mg/ Sodium (Chloride) 250 mls @ 250 mls/hr IV Q24H [facility] Last Admin: 04/24/20 17:11 Dose: 250 mls/hr Documented by: Lactobacillus Rhamnosus (Culturelle) 1 cap PO DAILY [facility] Last Admin: 04/25/20 08:32 Dose: 1 cap Documented by: Levothyroxine Sodium (Synthroid) 100 mcg PO DAILY [facility] Last Admin: 04/25/20 08:32 Dose: 100 mcg Documented by: Lisinopril (Prinivil) 20 mg PO BEDTIME [facility] Last Admin: 04/24/20 20:37 Dose: 20 mg Documented by: Loratadine (Claritin) 10 mg PO DAILY PRN PRN Reason: Allergies Multivitamins/Minerals/Vitamin C (Tab-A-Krystina) 1 tab PO DAILY [facility] Last Admin: 04/25/20 08:32 Dose: 1 tab Documented by: Polyethylene Glycol (Miralax) 17 gm PO DAILY PRN PRN Reason: Constipation Potassium Chloride (Klor-Con M20) 20 meq PO BID [facility] Last Admin: 04/25/20 08:31 Dose: 20 meq Documented by: Sodium Chloride (Saline Flush) 10 ml FLUSH ASDIRECTED PRN PRN Reason: Keep Vein Open Last Admin: 04/25/20 08:38 Dose: 10 ml Documented by: Sodium Chloride (Saline Flush) 10 ml FLUSH Q12H [facility] Last Admin: 04/25/20 04:21 Dose: 10 ml Documented by: Temazepam (Restoril) 15 mg PO BEDTIME PRN PRN Reason: Insomnia Triamcinolone Acetonide (Triamcinolone Acetonide 0.1% Crm) 0 gm TOP BID PRN PRN Reason: Pain (mild 1-3) Discontinued Medications Acetaminophen (Tylenol) 650 mg PO ONETIME ONE Stop: 04/23/20 14:20 Last Admin: 04/23/20 14:52 Dose: 650 mg Documented by: Doxycycline Hyclate (Vibramycin) 100 mg PO BID [facility] Last Admin: 04/24/20 08:06 Dose: 100 mg Documented by: Heparin Sodium (Porcine) (Heparin Sodium) 5,000 units SUBCUT Q12H [facility] Last Admin: 04/24/20 07:59 Dose: 5,000 units Documented by: Iopamidol (Isovue-370 (76%)) 100 ml IVPUSH ONETIME STA Stop: 04/23/20 16:23 Last Admin: 04/23/20 16:58 Dose: 100 ml Documented by: - Exam Quality Assessment: DVT Prophylaxis (Subcu Lovenox has been discontinued). No: Supplemental Oxygen, Central Line/PICC, Urine Catheter General: Alert, Oriented, Cooperative, No Acute Distress HEENT: Pupils Equal, Pupils Reactive, Mucous Membr. 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 No: EOMI (Stable moderate right-sided strabismus convergence) Neck: Supple, Trachea Midline, No JVD, No Thyromegaly, Carotid Bruit (Stable mild bilateral carotid bruits versus transmitted heart sounds). No: Lymphadenopathy Lungs: Normal Respiratory Effort, Rales (Slowly improving mild bilateral basilar rales). No: Rhonchi, Rub, Wheezing Cardiovascular: Regular Rate, Murmurs (2/6 ALEXANDRU of the aortic valve with 1/6 ALEXANDRU of the mitral valve), Other (Occasional extrasystoles). No: Gallops, Rubs GI/Abdominal Exam: Normal Bowel Sounds, Soft, Non-Tender, No Organomegaly, No Distention, No Abnormal Bruit, No Mass. No: Guarding (Male) Exam: Deferred Back Exam: Normal Inspection, Full Range of Motion. No: CVA Tenderness (L), CVA Tenderness (R), Muscle Spasm Extremities: Normal Inspection, Normal Range of Motion, Non-Tender, No Pedal Edema, Normal Capillary Refill, Other (Stable ecchymosis of the left forearm and extensor surfaces of the hands bilaterally with no petechiae ). No: Rico's Sign Peripheral Pulses: 2+: Radial (L), Radial (R), Dorsalis Pedis (L), Dorsalis Pedis (R) Skin: Warm, Ecchymosis (As above) Neurological: No New Focal Deficit Psy/Mental Status: Alert, Normal Affect, Normal Mood. No: Agitated, Hallucinations, Withdrawal Symptoms #1 Interpretation EKG Date: 04/25/20 Time: 08:05 Rhythm: Other (Occasional PACs and multiple paced beats with otherwise sinus rhythm) Rate (Beats/Min): 70 [place]: Normal (Neutral cardiac axis) P-Wave: Present QRS: Normal (0.08 seconds) ST-T: Normal QT: Normal CA/PQ Interval: 0.21 seconds representing an improved first-degree AV block Comparison: Change From Previous EKG (As above since 04/24/2020) EKG Interpretation Comments: 1. No acute ischemic changes 2. PACs with escape pacemaker Sepsis Event Note - Evaluation Sepsis Screening Result: No Definite Risk - Focused Exam Vital Signs: Vital Signs Temp Temp Pulse Resp BP BP BP 04/25/20 12:00 37.1 C 100 19 152/64 H 04/25/20 08:35 109/66 04/25/20 08:00 37.0 C 76 18 109/66 04/25/20 04:00 37.2 C 64 18 140/89 Pulse Ox 04/25/20 12:00 95 04/25/20 08:35 04/25/20 08:00 95 04/25/20 04:00 96 - Problem List & Annotations (1) Lab test positive for detection of COVID-19 virus SNOMED Code(s): 6678837007783584 Code(s): U07.1 - COVID-19 Status: Acute Priority: High Current Visit: Yes Onset Date: 04/23/20 Annotation/Comment:: Patient continues to be afebrile this morning with persistent but improving fatigue and generalized weakness. The patient does feel that he is able to go home tomorrow. Telephone consultation at 15:43 and then at 15:47 hours on 04/23/2020 with [place], childcare director at the [facility] in [place]. The [facility] does not have any beds available, and they did give approval for hospitalization in this or another facility. Various therapeutic options were discussed with the patient with the patient also discussing this with his by telephone. They are requesting that he stay in this facility for further care. Isolation precautions as per standard protocol. His O2 sats are excellent with no indication for additional aggressive treatment for his COVID-19, including oral dexamethasone, remdesivir, etc., at this time. He did initially receive oral Pepcid as GI prophylaxis, which should also be beneficial for this infection, with no confusion or other complications. Consider decreasing this medication on 04/25 secondary to his age and renal function. The patient is already on lisinopril, which is also beneficial as an angiotensin receptor inhibitor for treatment of his COVID-19 infection. Oral doxycycline for anti-inflammatory effect and treatment of his pneumonia and possible beginning UTI. The patient agrees to notify his and other recent close contacts concerning my recommendation of immediate testing for COVID-19 and initiation of quarantine, etc. protocol. His did apparently did get tested yesterday with results pending. Quarantine, isolation precautions, etc. after hospital discharge were discussed. [facility] physician assumes care in the a.m. Patient should be discharged on Zithromax and doxycycline with prescriptions already called to his pharmacy. No further need to continue Pepcid with the patient already on Prilosec. (2) Streptococcus pneumoniae SNOMED Code(s): 82774299 Code(s): A49.1 - STREPTOCOCCAL INFECTION, UNSPECIFIED SITE Status: Acute Priority: High Current Visit: Yes Onset Date: 04/23/20 Annotation/Comment:: As above. Oral doxycycline with additional IV Zithromax initiated on admission. Inhaler rather than nebulizer treatment secondary to his current COVID infection. Sputum culture has yet to be obtained. Continue incentive spirometry. (3) COPD (chronic obstructive pulmonary disease) SNOMED Code(s): 57212561 Code(s): J44.9 - CHRONIC OBSTRUCTIVE PULMONARY DISEASE, UNSPECIFIED Status: Chronic Priority: High Current Visit: Yes Qualifiers: COPD type: emphysema Emphysema type: panlobular Qualified Code(s): J43.1 - Panlobular emphysema Annotation/Comment:: Patient has not had to increase his inhaler use recently with 1-2-day history of progressive mostly clear productive cough prior to admission. Possible bilateral lower quadrant pulmonary infiltrates, however note significant pulmonary fibrosis as per emergency room note. Suspect strep pneumonia based on positive strep screen, although we are still unable to obtain a sputum for culture and sensitivity as above. Note positive COVID-19 screen. (4) D-dimer, elevated SNOMED Code(s): 348913967 Code(s): R79.89 - OTHER SPECIFIED ABNORMAL FINDINGS OF BLOOD CHEMISTRY Status: Acute Priority: High Current Visit: Yes Onset Date: 02/02/20 Annotation/Comment:: Chronic d-dimer elevation initially diagnosed in this facility on 02/02/2020 with apparent previous negative work-up as above. Note current infection, etc. CTA of the chest was conducted shortly after admission with negative evaluation for acute PE, however incidental finding of a 6 mm right upper lobe pulmonary nodule with recommended repeat CT scan in 6-12 months. Only mild increase of patient's creatinine after this procedure with relatively stable renal insufficiency during this hospitalization. Significantly progressive d-dimer elevation prior to admission with some improvement with low- dose subcu heparin therapy. He is not a good candidate for anticoagulation secondary to his thrombocytopenia, however. Note some mild progressive moderate thrombocytopenia on 04/24/2020 with no evidence of acute bleeding. Venous Doppler studies of the lower extremities were negative for DVT. Initial low- dose subcutaneous sodium heparin was discontinued early in this hospitalization secondary to his progressive thrombocytopenia. CTA of the chest was also negative for PE. Secondary to his thrombocytopenia he is not a candidate for oral anticoagulation therapy at discharge. (5) PAC (premature atrial contraction) SNOMED Code(s): 641247530 Code(s): I49.1 - ATRIAL PREMATURE DEPOLARIZATION Status: Acute Priority: Medium Current Visit: Yes Onset Date: 04/23/20 Annotation/Comment:: Stable mild arrhythmia with newly diagnosed PACs and sinus arrhythmia with current pacemaker therapy for unknown reason. Note history of CHF, however. No chest pain or anginal type symptoms. Continue to observe for now. (6) Pancytopenia SNOMED Code(s): 130936682 Code(s): D61.818 - OTHER PANCYTOPENIA Status: Acute Priority: High Current Visit: Yes Onset Date: 04/23/20 Annotation/Comment:: Note known previous history of stable chronic anemia likely secondary to his renal disease with newly diagnosed leukopenia possibly secondary to current infection, although normal WBCs on 04/24/2020.. Additional known thrombocytopenia during our evaluation in this facility on 02/02/2020, which was relatively stable at time of admission, however somewhat progressive on 04/24 and on 04/25. Consider hemeoncology consultation, further work-up, etc. (7) Renal insufficiency SNOMED Code(s): 194150156, 520004865 Code(s): N28.9 - DISORDER OF KIDNEY AND URETER, UNSPECIFIED Status: Chronic Priority: Medium Current Visit: Yes Annotation/Comment:: Stable per medical records and during this hospitalization as above. Continue to observe closely. Note low-dose IV Lasix therapy. (8) Strep pharyngitis SNOMED Code(s): 93509570 Code(s): J02.0 - STREPTOCOCCAL PHARYNGITIS Status: Acute Priority: High Current Visit: Yes Onset Date: 04/23/20 Annotation/Comment:: As above (9) CHF, Congestive heart failure SNOMED Code(s): 58803849 Code(s): I50.9 - HEART FAILURE, UNSPECIFIED Status: Chronic Priority: High Current Visit: Yes Onset Date: 02/02/20 Annotation/Comment:: No chest pain or anginal type symptoms with chest pain protocol not initiated in the emergency room. EKG and cardiac enzymes are normal, including troponin I with only mild change in troponin I secondary to his progressive BNP elevation. Mild progression of his BNP on 04/24 likely secondary to his renal function however improved on 04/25. Consider outpatient echocardiogram, if this has not been conducted recently, however note NO CODE STATUS. IV Lasix therapy with caution for now secondary to patient's current infection. Lasix therapy will likely not be needed at discharge, however. 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 Bladder scan showed a residual urine of 111 cc with no evidence of significant urinary retention. No urinary incontinence since admission. Note that patient did have some possible bilateral kidney pain prior to admission with minimal microhematuria and no direct evidence of UTI symptoms despite his fever. Urine culture has been set up for culture and sensitivity. Antibiotic therapy as abo ve. Further urology consultation depending on his clinical course. (11) Need for comfort care SNOMED Code(s): 861437043, 638422096 Code(s): EJR7488 - Status: Chronic Priority: Medium Current Visit: Yes Annotation/Comment:: Confirmed with the patient on admission. Prognosis extremely guarded secondary to multiple risk factors, current COVID-19 infection, etc. (12) Constipation SNOMED Code(s): 72229065 Code(s): K59.00 - CONSTIPATION, UNSPECIFIED Status: Chronic Priority: Medium Current Visit: Yes Qualifiers: Constipation type: chronic idiopathic constipation Qualified Code(s): K59.04 - Chronic idiopathic constipation Annotation/Comment:: Some constipation during this hospitalization with patient given as needed MiraLAX with additional dose of Dulcolax on 04/25. - Problem List Review Problem List Initiated/Reviewed/Updated: Yes - My Orders Last 24 Hours: My Active Orders 04/24/20 18:00 Doxycycline Monohydrate 100 mg PO BID 04/25/20 05:11 EKG Documentation Completion [RC] ASDIRECTED Chest 1V Frontal [CR] Routine 04/25/20 14:59 bisacodyL [Dulcolax] 10 mg PO ONETIME ONE - Assessment Assessment:: As above - Plan Plan:: As above. Extensive precautions were given to the patient, who is in agreement with the treatment plan. The patient will require about 1-2 days of inpatient/acute care secondary to multiple health problems as above, although he does feel that he can be discharged to home tomorrow. [facility] physician assumes care in the a.m.
[2020-04-25] MEDS: Azithromycin 500 MG in Sodium Chloride 0.9% 250 ML IV SCH (17:08)
[2020-04-25] MEDS: Finasteride 5 MG Tab PO SCH (20:30)
[2020-04-25] MEDS: Lisinopril 20 MG Tab PO SCH (20:30)
[2020-04-26] MEDS: Furosemide 20 MG/2 ML VIAL IVPUSH SCH (05:55)
[2020-04-26] MEDS: Sodium Chloride 0.9% 10 ML Syringe FLUSH SCH (05:55)
[2020-04-26] MEDS: Sodium Chloride 0.9% 10 ML Syringe FLUSH PRN (08:30)
[2020-04-26] MEDS: Lactobacillus Rhamnosus GG (Probiotic) Cap PO SCH (08:30)
[2020-04-26] MEDS: Multivitamin Tab PO SCH (08:31)
[2020-04-26] MEDS: Potassium Chloride 20 MEQ Tab.ER PO SCH (08:31)
[2020-04-26] MEDS: Dextromethorphan/guaiFENesin 600-30 MG Tab.ER PO SCH (08:31)
[2020-04-26] MEDS: Doxycycline Monohydrate 100 MG Cap PO SCH (08:31)
[2020-04-26] MEDS: Famotidine 20 MG Tab PO SCH (08:31)
[2020-04-26] MEDS: Levothyroxine 100 MCG Tab PO SCH (08:32)
[2020-04-26] MEDS: amLODIPine 5 MG Tab PO SCH (08:32)
[2020-04-26] MEDS: Aspirin 81 MG Tab.EC PO SCH (08:32)
[2020-04-26] MEDS: Albuterol/Ipratropium 4 GM Inhalation Spray INH SCH ×2 (08:33→12:05)
[2020-04-26 12:10] VITALS: BP 94/56; PULSE 70
--- NOTE | 2020-04-26 15:44 | PCM.DCSUM1 ---
Discharge Summary - Hospital Course Brief History: Patient evaluated in ER for weakness. Admitted for further treatment of diagnosed pneumonia and Covid 19 infection. Diagnosis: Stroke: No - Discharge Data Discharge Date: 04/26/20 Discharge Disposition: Home, Self-Care 01 Condition: Good - Referral to Home Health Primary Care Physician: PCP None - Discharge Diagnosis/Problem(s) (1) Lab test positive for detection of COVID-19 virus SNOMED Code(s): 1107179241107185 ICD Code: U07.1 - COVID-19 Status: Acute Priority: High Current Visit: Yes Onset Date: 04/23/20 Problem Details: Patient overall feels he is improving/has better strength. Telephone consultation at 15:43 and then at 15:47 hours on 04/23/2020 with [place] [facility]. No beds a vailable/permission to hospitalize here received. His O2 sats have been excellent with no indication for additional aggressive treatment for his COVID- 19, including oral dexamethasone, remdesivir. The patient is already on lisinopril, which is also beneficial as an angiotensin receptor inhibitor for treatment of his COVID-19 infection. Oral doxycycline for anti-inflammatory effect and treatment of his pneumonia and possible beginning UTI. The patient agreed to notify his and other recent close contacts concerning recommendation of immediate testing for COVID-19 and initiation of quarantine, etc. protocol. Quarantine, isolation precautions, etc. after hospital discharge were discussed. Patient will be discharged on Zithromax and doxycycline. (2) D-dimer, elevated SNOMED Code(s): 231291210 ICD Code: R79.89 - OTHER SPECIFIED ABNORMAL FINDINGS OF BLOOD CHEMISTRY Status: Acute Priority: High Current Visit: Yes Onset Date: 02/02/20 Problem Details: Chronic d-dimer elevation initially diagnosed in this facility on 02/02/2020 with apparent previous negative work-up as above. Note current infection, etc. CTA of the chest was conducted shortly after admission with negative evaluation for acute PE, however incidental finding of a 6 mm right upper lobe pulmonary nodule with recommended repeat CT scan in 6-12 months. Only mild increase of patient's creatinine after this procedure with relatively stable renal insufficiency during this hospitalization. Significantly progressive d-dimer elevation prior to admission with some improvement with low- dose subcu heparin therapy. He is not a good candidate for anticoagulation secondary to his thrombocytopenia, however. Note some mild progressive moderate thrombocytopenia on 04/24/2020 with no evidence of acute bleeding. Venous Doppler studies of the lower extremities were negative for DVT. Initial low- dose subcutaneous sodium heparin was discontinued early in this hospitalization secondary to his progressive thrombocytopenia. CTA of the chest was also negative for PE. Secondary to his thrombocytopenia he is not a candidate for oral anticoagulation therapy at discharge. (3) PAC (premature atrial contraction) SNOMED Code(s): 127071259 ICD Code: I49.1 - ATRIAL PREMATURE DEPOLARIZATION Status: Acute Priority: Medium Current Visit: Yes Onset Date: 04/23/20 Problem Details: Stable mild arrhythmia with newly diagnosed PACs and sinus arrhythmia with current pacemaker therapy for unknown reason. Note history of CHF, however. No chest pain or anginal type symptoms. (4) Pancytopenia SNOMED Code(s): 061392019 ICD Code: D61.818 - OTHER PANCYTOPENIA Status: Acute Priority: High Current Visit: Yes Onset Date: 04/23/20 Problem Details: Note known previous history of stable chronic anemia likely secondary to his renal disease with newly diagnosed leukopenia possibly secondary to current infection, although normal WBCs on 04/24/2020.. Additional known thrombocytopenia during our evaluation in this facility on 02/02/2020, which was relatively stable at time of admission, however somewhat progressive on 04/24 and on 04/25. Consider hemeoncology consultation, further work-up as needed with PCP. (5) Strep pharyngitis SNOMED Code(s): 48360298 ICD Code: J02.0 - STREPTOCOCCAL PHARYNGITIS Status: Acute Priority: High Current Visit: Yes Onset Date: 04/23/20 Problem Details: As above (6) Streptococcus pneumoniae SNOMED Code(s): 13186008 ICD Code: A49.1 - STREPTOCOCCAL INFECTION, UNSPECIFIED SITE Status: Acute Priority: High Current Visit: Yes Onset Date: 04/23/20 Problem Details: As above. Oral doxycycline with additional IV Zithromax initiated on admission. Inhaler rather than nebulizer treatment secondary to his current COVID infection. 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 Bladder scan showed a residual urine of 111 cc with no evidence of significant urinary retention. No urinary incontinence since admission. UC showed mixed fabiana/contamination. Follow with PCP as needed. Qualifiers: Urinary Incontinence type: other incontinence Qualified Code(s): N39.498 - Other specified urinary incontinence (8) CHF, Congestive heart failure SNOMED Code(s): 79400450 ICD Code: I50.9 - HEART FAILURE, UNSPECIFIED Status: Chronic Priority: High Current Visit: Yes Onset Date: 02/02/20 Problem Details: No chest pain or anginal type symptoms with chest pain protocol not initiated in the emergency room. EKG and cardiac enzymes are normal, including troponin I with only mild change in troponin I secondary to his progressive BNP elevation. Mild progression of his BNP on 04/24 likely secondary to his renal function however improved on 04/25. Follow up with PCP (9) COPD (chronic obstructive pulmonary disease) SNOMED Code(s): 55065401 ICD Code: J44.9 - CHRONIC OBSTRUCTIVE PULMONARY DISEASE, UNSPECIFIED Status: Chronic Priority: High Current Visit: Yes Problem Details: Patient has not had to increase his inhaler use recently with 1-2-day history of progressive mostly clear productive cough prior to admission. Possible bilateral lower quadrant pulmonary infiltrates, however note significant pulmonary fibrosis as per emergency room note. Suspect strep pneumonia based on positive strep screen, although we are still unable to obtain a sputum for culture and sensitivity as above. Note positive COVID-19 screen. Qualifiers: COPD type: emphysema Emphysema type: panlobular Qualified Code(s): J43.1 - Panlobular emphysema (10) Constipation SNOMED Code(s): 26707293 ICD Code: K59.00 - CONSTIPATION, UNSPECIFIED Status: Chronic Priority: Medium Current Visit: Yes Problem Details: Some constipation during this hospitalization with patient given as needed MiraLAX with additional dose of Dulcolax on 04/25. Qualifiers: Constipation type: chronic idiopathic constipation Qualified Code(s): K59.04 - Chronic idiopathic constipation (11) Need for comfort care SNOMED Code(s): 456327060, 353520430 ICD Code: [id number] - Status: Chronic Priority: Medium Current Visit: Cash desai Problem Details: Confirmed with the patient on admission. Prognosis extremely guarded secondary to multiple risk factors, current COVID-19 infection, etc. Improved at time of discharge. (12) Renal insufficiency SNOMED Code(s): 760683473, 411963625 ICD Code: N28.9 - DISORDER OF KIDNEY AND URETER, UNSPECIFIED Status: Chronic Priority: Medium Current Visit: Yes Problem Details: Stable per medical records and during this hospitalization as above. Follow up with PCP - Patient Summary/Data Hospital Course: Patient treated with antibiotics/inhalers. Negative studies for PE/DVT. Blood cultures and UC negative. Improvement noted daily. No fevers. Patient feels that he can now return home and has regained strength. No new symptoms during stay. To follow up closely with PCP. Discharged home on Zithro/Doxy - Patient Instructions Diet: Usual Diet as Tolerated Fluid Restriction: 2000 mL Activity: As Tolerated Showering/Bathing: May Shower Notify Provider of: Fever, Increased Pain Other/Special Instructions: Follow up with your primary provider next week to be rechecked. Return to ER if worse/call us with any questions. - Discharge Plan *PRESCRIPTION DRUG MONITORING PROGRAM REVIEWED*: Not Applicable *COPY OF PRESCRIPTION DRUG MONITORING REPORT IN PATIENT KADEN: Not Applicable Home Medications: Home Meds Albuterol [Ventolin HFA] 2 puff INH Q6HR PRN 07/14/13 [History] Finasteride 5 mg PO BEDTIME 07/14/13 [History] Aspirin [Halfprin] 81 mg PO BRK 04/04/16 [History] Levothyroxine Sodium [Synthroid] 100 mcg PO DAILY 04/04/16 [History] Lisinopril 20 mg PO BEDTIME 04/04/16 [History] Loratadine 10 mg PO DAILY PRN 04/04/16 [History] Omeprazole 20 mg PO DAILY 04/04/16 [History] Polyethylene Glycol 3350 [MiraLAX] 17 gram PO DAILY PRN 04/04/16 [History] L.acidoph,Paracasei, B.lactis [Probiotic] 1 each PO DAILY 04/23/20 [History] Multivitamin 1 each PO DAILY 04/23/20 [History] Salicyl/Methyl Salicylate/Talc [Dr. López's Original Foot Pwd] 85 gm TP ASDIRECTED PRN 04/23/20 [History] Triamcinolone Acetonide [Triamcinolone Acetonide 0.1% Crm] 1 applic TOP BID PRN 04/23/20 [History] amLODIPine [Norvasc] 2.5 mg PO DAILY 04/23/20 [History] Albuterol/Ipratropium [Combivent Respimat] 2 puff INH QID PRN #1 inhaler 04/26/20 [Rx] Azithromycin [Zithromax] 500 mg IV Q24H vial 04/26/20 [Rx] Doxycycline Monohydrate 100 mg PO BID cap 04/26/20 [Rx] Forms: ED Department Discharge Referrals: PCP,None [Primary Care Provider] - - Discharge Summary/Plan Comment DC Time >30 min.: No - General Info Date of Service: 04/26/20 Admission Dx/Problem (Free Text: 1. Positive COVID-19 2. Bilateral pneumonia 3. COPD 4. D-dimer elevation 5. Pancytopenia Subjective Update: Patient feels much improved compared to when he was first admitted. Would like to go home. Functional Status: Reports: Pain Controlled - Review of Systems General: Reports: Weakness (improving), Fatigue (improving). Denies: Fever, Malaise, Chills, Night Sweats, Appetite HEENT: Denies: Headaches, Sinus Congestion, Sore Throat, Rhinitis, Visual Changes Pulmonary: Reports: Cough (improving). Denies: Shortness of Breath, Pleuritic Chest Pain, Sputum, Hemoptysis, Wheezing Cardiovascular: Denies: Chest Pain, Palpitations, Dyspnea on Exertion, Lightheadedness Gastrointestinal: Reports: Constipation (much improved). Denies: Nausea, Vomiting Genitourinary: Reports: No Symptoms Musculoskeletal: Reports: Other (no acute changes from baseline) Skin: Reports: Bruising (hands/arms). Denies: Diaphoresis Neurological: Denies: Confusion, Dizziness, Headache, Numbness, Trouble Speaking, Change in Speech Psychiatric: Reports: No Symptoms - Patient Data Vitals - Most Recent: Last Vital Signs Temp 36.4 C 04/26/20 12:00 Pulse 70 04/26/20 12:00 Resp 18 04/26/20 12:00 BP 94/56 L 04/26/20 12:00 Pulse Ox 96 04/26/20 12:00 Weight - Most Recent: 64.274 kg I&O - Last 24 hours: Intake & Output 04/26/20 04/26/20 04/26/20 06:59 14:59 22:59 Intake Total 250 360 Balance 250 360 Lab Results - Last 24 hrs: Laboratory Results - last 24 hr 04/26/20 04/26/20 Range/Units 06:45 06:45 WBC 4.0 (4.0-10.2) K/uL RBC 3.67 L (4.33-5.41) M/uL Hgb 10.6 L (13.1-16.8) g/dL Hct 32.0 L (39.0-49.0) % MCV 87.2 (84.0-98.0) fL MCH 28.9 (28.2-33.3) pg MCHC 33.1 (31.7-36.0) g/dL RDW 14.7 H (11.2-14.1) % Plt Count 59 L (150-350) K/uL Neut % (Auto) 24.0 L (45.0-80.0) % Lymph % (Auto) 50.3 H (10.0-50.0) % Barber % (Auto) 24.4 H (2.0-14.0) % Eos % (Auto) 0.3 (0.0-5.0) % Baso % (Auto) 1.0 (0.0-2.0) % Neut # (Auto) 0.96 L (1.40-7.00) K/uL Lymph # (Auto) 2.00 (0.50-3.50) K/uL Barber # (Auto) 0.97 (0.00-1.00) K/uL Eos # (Auto) 0.01 (0.00-0.50) K/uL Baso # (Auto) 0.04 (0.00-0.20) K/uL Sodium 137 (136-145) mmol/L Potassium 4.2 (3.5-5.1) mmol/L Chloride 99 (98-107) mmol/L Carbon Dioxide 24.3 (21.0-32.0) mmol/L BUN 44 H (7-18) mg/dL Creatinine 1.85 H (0.51-1.17) mg/dL Est Cr Clr Drug Dosing 26.59 mL/min Estimated GFR (MDRD) 35 mL/min Glucose 102 (74-106) mg/dL Calcium 8.3 L (8.5-10.1) mg/dL Troponin I 0.015 (0.000-0.056) ng/mL NT-Pro-B Natriuret Pep 710 H (0-125) pg/mL KATHERYN Results - Last 24 hrs: Microbiology 04/23/20 14:55 Aerobic Blood Culture - Preliminary Blood - Venous - Lab Draw NO GROWTH AFTER 3 DAYS Anaerobic Blood Culture - Preliminary NO GROWTH AFTER 3 DAYS 04/23/20 14:45 Aerobic Blood Culture - Preliminary Blood - Venous NO GROWTH AFTER 3 DAYS Anaerobic Blood Culture - Preliminary NO GROWTH AFTER 3 DAYS Med Orders - Current: Current Medications Acetaminophen (Tylenol) 650 mg PO Q4H PRN PRN Reason: Pain/Fever Last Admin: 04/24/20 17:12 Dose: 650 mg Documented by: Albuterol/Ipratropium (Combivent Respimat) 0 gm INH QID [facility] Last Admin: 04/26/20 12:05 Dose: 2 puff Documented by: Amlodipine Besylate (Norvasc) 2.5 mg PO DAILY [facility] Last Admin: 04/26/20 08:32 Dose: 2.5 mg Documented by: Aspirin (Halfprin) 81 mg PO WITHBREAKFAST [facility] Last Admin: 04/26/20 08:32 Dose: 81 mg Documented by: Doxycycline Monohydrate (Doxycycline Monohydrate) 100 mg PO BID [facility] Last Admin: 04/26/20 08:31 Dose: 100 mg Documented by: Famotidine (Pepcid) 20 mg PO BID [facility] Last Admin: 04/26/20 08:31 Dose: 20 mg Documented by: Finasteride (Proscar) 5 mg PO BEDTIME [facility] Last Admin: 04/25/20 20:30 Dose: 5 mg Documented by: Furosemide (Lasix) 20 mg IVPUSH Q12H [facility] Last Admin: 04/26/20 05:55 Dose: 20 mg Documented by: Guaifenesin/Dextromethorphan (Mucinex Dm Er 600-30 Mg) 1 tab PO BID [facility] Last Admin: 04/26/20 08:31 Dose: 1 tab Documented by: Azithromycin 500 mg/ Sodium (Chloride) 250 mls @ 250 mls/hr IV Q24H [facility] Last Admin: 04/25/20 17:08 Dose: 250 mls/hr Documented by: Lactobacillus Rhamnosus (Culturelle) 1 cap PO DAILY [facility] Last Admin: 04/26/20 08:30 Dose: 1 cap Documented by: Levothyroxine Sodium (Synthroid) 100 mcg PO DAILY [facility] Last Admin: 04/26/20 08:32 Dose: 100 mcg Documented by: Lisinopril (Prinivil) 20 mg PO BEDTIME [facility] Last Admin: 04/25/20 20:30 Dose: 20 mg Documented by: Loratadine (Claritin) 10 mg PO DAILY PRN PRN Reason: Allergies Multivitamins/Minerals/Vitamin C (Tab-A-Krystina) 1 tab PO DAILY [facility] Last Admin: 04/26/20 08:31 Dose: 1 tab Documented by: Polyethylene Glycol (Miralax) 17 gm PO DAILY PRN PRN Reason: Constipation Last Admin: 04/25/20 17:09 Dose: 17 gm Documented by: Potassium Chloride (Klor-Con M20) 20 meq PO BID [facility] Last Admin: 04/26/20 08:31 Dose: 20 meq Documented by: Sodium Chloride (Saline Flush) 10 ml FLUSH ASDIRECTED PRN PRN Reason: Keep Vein Open Last Admin: 04/26/20 08:30 Dose: 10 ml Documented by: Sodium Chloride (Saline Flush) 10 ml FLUSH Q12H [facility] Last Admin: 04/26/20 05:55 Dose: 10 ml Documented by: Temazepam (Restoril) 15 mg PO BEDTIME PRN PRN Reason: Insomnia Triamcinolone Acetonide (Triamcinolone Acetonide 0.1% Crm) 0 gm TOP BID PRN PRN Reason: Pain (mild 1-3) Discontinued Medications Acetaminophen (Tylenol) 650 mg PO ONETIME ONE Stop: 04/23/20 14:20 Last Admin: 04/23/20 14:52 Dose: 650 mg Documented by: Bisacodyl (Dulcolax) 10 mg PO ONETIME ONE Stop: 04/25/20 15:00 Last Admin: 04/25/20 17:05 Dose: 10 mg Documented by: Doxycycline Hyclate (Vibramycin) 100 mg PO BID [facility] Last Admin: 04/24/20 08:06 Dose: 100 mg Documented by: Heparin Sodium (Porcine) (Heparin Sodium) 5,000 units SUBCUT Q12H [facility] Last Admin: 04/24/20 07:59 Dose: 5,000 units Documented by: Iopamidol (Isovue-370 (76%)) 100 ml IVPUSH ONETIME STA Stop: 04/23/20 16:23 Last Admin: 04/23/20 16:58 Dose: 100 ml Documented by: - Exam General: Reports: Alert, Oriented, Cooperative, No Acute Distress HEENT: Reports: Pupils Equal, Pupils Reactive, EOMI, Mucous Membr. Moist/[place] Neck: Reports: Supple Lungs: Reports: Normal Respiratory Effort, Decreased Breath Sounds (throughout). Denies: Crackles, Rales, Rhonchi Cardiovascular: Reports: Regular Rate, Regular Rhythm, No Murmurs GI/Abdominal Exam: Normal Bowel Sounds, Soft, Non-Tender, No Distention (Male) Exam: Deferred Rectal (Males) Exam: Deferred Back Exam: Denies: CVA Tenderness (L), CVA Tenderness (R), Muscle Spasm Extremities: Non-Tender, Normal Capillary Refill Skin: Reports: Warm, Dry Neurological: Reports: No New Focal Deficit Psy/Mental Status: Reports: Alert, Normal Affect, Normal Mood
== END 2020-04-26 16:10 | disposition home or self-care (01) | DRG 177 ==
LOC: LL.ED 14:09 → LL.MS 16:17 → UNDOADMIN 16:17 → LL.MS 16:24
PROVIDERS: ADMIT Family Medicine; ATTEND Family Medicine
PROC: 8E0ZXY6 Isolation (ICD-10-PCS; principal; 2020-04-23)
DX: U07.1 COVID-19 (principal); J15.4 Pneumonia due to other streptococci; D61.818 Other pancytopenia; N39.0 Urinary tract infection, site not specified; I49.1 Atrial premature depolarization; J02.0 Streptococcal pharyngitis; N28.9 Disorder of kidney and ureter, unspecified; D72.819 Decreased white blood cell count, unspecified; A49.1 Streptococcal infection, unspecified site; R32 Unspecified urinary incontinence; D64.9 Anemia, unspecified; D69.6 Thrombocytopenia, unspecified; I50.9 Heart failure, unspecified; J43.1 Panlobular emphysema; K59.04 Chronic idiopathic constipation; I71.4 Abdominal aortic aneurysm, without rupture; Z51.5 Encounter for palliative care; N39.498 Other specified urinary incontinence; R79.89 Other specified abnormal findings of blood chemistry; I11.0 Hypertensive heart disease with heart failure; Z79.899 Other long term (current) drug therapy; E78.00 Pure hypercholesterolemia, unspecified; Z88.0 Allergy status to penicillin; Z91.013 Allergy to seafood; Z79.82 Long term (current) use of aspirin; Z79.890 Hormone replacement therapy; Z86.73 Personal history of transient ischemic attack (TIA), and cerebral infarction without residual deficits; Z95.0 Presence of cardiac pacemaker; Z98.49 Cataract extraction status, unspecified eye; Z90.49 Acquired absence of other specified parts of digestive tract
CPT/HCPCS: 36415; 71045; 71275; 80048; 80053; 81001; 82272; 82550; 82553; 83605; 83735; 83880; 84443; 84484; 85025; 85379; 85610; 85730; 87040; 87086; 87430; 87804; 93005; 93970; 94640; A9270-GY; J0456; J1644; J1940; J7050; Q9967; U0002

== ENCOUNTER 2020-04-30 09:06 | Emergency (ER) | payer MEDICARE, OTHER ==
[2020-04-30] MEDS ORDERED: Sodium Chloride 0.9% 1,000 ML IV ONE (09:07)
[2020-04-30 09:18] VITALS: PULSE 73
[2020-04-30 10:11] LABS: CHLORIDE,CL 101 mmol/L (98-107); SODIUM,NA 136 mmol/L (136-145)
--- NOTE | 2020-04-30 10:43 | EDM.PDOC ---
ED HPI GENERAL MEDICAL PROBLEM - General Chief Complaint: Trauma Stated Complaint: fall, trAuma Time Seen by Provider: 04/30/20 09:15 Source of Information: Reports: Patient, EMS, Family History Limitations: Reports: No Limitations - History of Present Illness INITIAL COMMENTS - FREE TEXT/NARRATIVE: Pt brought to ER via EMS Pt noted to fall last PM at 2200 while in his basement Found at approximately 0800 by States he went to basement to try to breath better as he was dx'd with Covid 04/23 Was in the hospital here until 04/26 States the state cleared him on 04/26 Complains of face pain and swelling No LOC but was too weak to get up Onset: Sudden Duration: Day(s): Location: Reports: Face Quality: Reports: Throbbing Severity: Moderate Context: Reports: Trauma - Related Data Allergies Allergy/AdvReac Type Severity Reaction Status Date / Time Penicillins Allergy itching, Verified 04/23/20 14:51 hives shellfish derived Allergy itching & Verified 04/23/20 14:51 rash Home Meds: Home Meds Albuterol [Ventolin HFA] 2 puff INH Q6HR PRN 07/14/13 [History] Finasteride 5 mg PO BEDTIME 07/14/13 [History] Aspirin [Halfprin] 81 mg PO BRK 04/04/16 [History] Levothyroxine Sodium [Synthroid] 100 mcg PO DAILY 04/04/16 [History] Lisinopril 20 mg PO BEDTIME 04/04/16 [History] Loratadine 10 mg PO DAILY PRN 04/04/16 [History] Omeprazole 20 mg PO DAILY 04/04/16 [History] Polyethylene Glycol 3350 [MiraLAX] 17 gram PO DAILY PRN 04/04/16 [History] L.acidoph,Paracasei, B.lactis [Probiotic] 1 each PO DAILY 04/23/20 [History] Multivitamin 1 each PO DAILY 04/23/20 [History] Salicyl/Methyl Salicylate/Talc [Dr. López's Original Foot Pwd] 85 gm TP ASDIRECTED PRN 04/23/20 [History] Triamcinolone Acetonide [Triamcinolone Acetonide 0.1% Crm] 1 applic TOP BID PRN 04/23/20 [History] amLODIPine [Norvasc] 2.5 mg PO DAILY 04/23/20 [History] Albuterol/Ipratropium [Combivent Respimat] 2 puff INH QID PRN #1 inhaler 04/26/20 [Rx] Azithromycin [Zithromax] 500 mg IV Q24H vial 04/26/20 [Rx] Doxycycline Monohydrate 100 mg PO BID cap 04/26/20 [Rx] Past Medical History HEENT History: Reports: Allergic Rhinitis, Cataract, Hard of Hearing, Impaired Vision, Other (See Below) Other HEENT History: Patient wears glasses. 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 Cardiovascular History: Reports: Aneurysm, Arrhythmia, Heart Failure, Heart Murmur, High Cholesterol, Hypertension, Pacemaker, Syncope, Other (See Below) Other Cardiovascular History: Abdominal aortic aneurysm with repair as below. Aortic valve stenosis and mitral valve insufficiency by clinical exam. Orthostatic hypotension/syncope in March 2006. D-dimer elevation on 02/02/2020 with apparent negative subsequent venous Doppler studies of the lower extremities at the [facility]. Patient is uncertain whether he had recommended VQ scan. 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 Mild CHF on 02/02/2020 with no known further work-up. Respiratory History: Reports: Bronchitis, Recurrent, COPD, Intubation, Previous, Pulmonary Fibrosis Gastrointestinal History: Reports: Chronic Constipation, GERD Genitourinary History: Reports: BPH, Chronic Renal Insuffiency Musculoskeletal History: Reports: Arthritis, Back Pain, Chronic, Neck Pain, Chronic, Osteoarthritis, Osteoporosis, Other (See Below) Other Musculoskeletal History: Right proximal arm tendon rupture requiring surgery as below. Iliopsoas. 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 Psychiatric History: Reports: None Endocrine/Metabolic History: Reports: Hypothyroidism, Osteopenia, Osteoporosis, Other (See Below) Other Endocrine/Metabolic History: Hyponatremia possibly secondary to CHF. Hypoalbuminemia. Hyperkalemia. Hematologic History: Reports: Anemia, Other (See Below) Other Hematologic History: Chronic anemia likely secondary to his renal disease. Thrombocytopenia initially diagnosed on 02/02/2020. 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 Dermatologic History: Reports: Seborrheic Dermatitis, Other (See Below) Other Dermatologic History: Chronic dermatitis. - Infectious Disease History Infectious Disease History: Reports: Chicken Pox, Mumps, Other (See Below) Other Infectious Disease History: 04/23/20: positive COVID-19 - Past Surgical History Head Surgeries/Procedures: Reports: None HEENT Surgical History: Reports: Adenoidectomy, Cataract Surgery, Tonsillectomy, Other (See Below) Other HEENT Surgeries/Procedures: Tonsillectomy and adenoidectomy as a child. Bilateral cataract surgery in 2014. Cardiovascular Surgical History: Reports: AAA Repair, Pacer, Other (See Below) Other Cardiovascular Surgeries/Procedures: AAA repair on 03/03/99. Respiratory Surgical History: Reports: None GI Surgical History: Reports: Appendectomy, Colonoscopy, Hernia, Abdominal, Other (See Below) Other GI Surgeries/Procedures: Ventral abdominal incisional hernia repair on 01/12/01 after previous AAA repair. Appendectomy in 1965. Colonoscopy in his 50s. Endocrine Surgical History: Reports: None Neurological Surgical History: Reports: Discectomy, Lumbar Spine, Spinal Fusion, Other (See Below) Other Neurological Surgeries/Procedures: Spinal fusion of the lumbar spine in 1992 with previous lumbar surgery in the 1980s. Musculoskeletal Surgical History: Reports: Other (See Below) Other Musculoskeletal Surgeries/Procedures:: Right arm tendon repair in 1972. Oncologic Surgical History: Reports: Other (See Below) Other Oncologic Surgeries/Procedures: Excision of basal cell carcinoma from the left lateral nose region by Mohs procedure on 05/16/12. Dermatological Surgical History: Reports: Other (See Below) - Past Imaging History Past Imaging History: Reports: Cardiac Echo (By patient history with no records available), Venous Doppler ([facility] [place] by patient history) Social & Family History - Family History Family Medical History: Noncontributory HEENT: Reports: None Cardiac: Reports: High Cholesterol, Hypertension, Other (See Below) Other Cardiac Family History: Brother with hypertension and hyperlipidemia and at age 91 from old age. Respiratory: Reports: None GI: Reports: None : Reports: None OBGYN: Reports: None Musculoskeletal: Reports: None Neurological: Reports: None Psychiatric: Reports: None Endocrine/Metabolic: Reports: None Hematologic: Reports: None Immunologic: Reports: None Dermatologic: Reports: None Oncologic: Reports: None - Caffeine Use Caffeine Use: Reports: Coffee (2 cups/day), Tea (Occasional). Denies: Energy Drinks, Soda - Living Situation & Occupation Living situation: Reports: (1952, 3 children), with Family () Occupation: Retired (Retired at age 43 from the ) Review of Systems - Review of Systems Review Of Systems: See Below Eyes: Reports: No Symptoms Ears: Reports: No Symptoms Nose: Reports: No Symptoms Mouth/Throat: Reports: Other (Swelling and bruising of lower lip and lower face) Respiratory: Reports: No Symptoms Cardiovascular: Reports: No Symptoms Musculoskeletal: Reports: Back Pain Neurological: Reports: Weakness Psychiatric: Reports: No Symptoms ED EXAM, GENERAL - Physical Exam Exam: See Below Exam Limited By: No Limitations General Appearance: Moderate Distress Eye Exam: Bilateral Eye: EOMI, PERRL Ears: Normal TMs Nose: Normal Inspection Throat/Mouth: Other (Lower lip and lower face to chin with significant swelling and ecchymosis) Neck: Non-Tender Respiratory/Chest: Lungs Clear, Chest Non-Tender Cardiovascular: Regular Rate, Rhythm Back Exam: Paraspinal Tenderness Extremities: Normal Inspection Neurological: Alert, Oriented, No Motor/Sensory Deficits Psychiatric: Normal Affect, Normal Mood Course - Vital Signs Last Recorded V/S: Last Vital Signs Temp Pulse 73 04/30/20 09:06 Resp 26 H 04/30/20 09:06 BP Pulse Ox 100 04/30/20 09:06 - Orders/Labs/Meds Orders: Active Orders 24 hr Category Date Time Status EKG Documentation Completion [RC] ASDIRECTED Care 04/30/20 09:19 Active Cervical Spine wo Cont [CT] Stat Exams 04/30/20 09:40 Taken Chest 1V Frontal [CR] Stat Exams 04/30/20 09:22 Taken Chest wo Cont [CT] Stat Exams 04/30/20 10:08 Taken Head wo Cont [CT] Stat Exams 04/30/20 09:17 Taken Max Facial Sinus wo Cont [CT] Stat Exams 04/30/20 09:40 Taken EKG 12 Lead [EK] Stat Ther 04/30/20 09:19 Ordered Labs: Laboratory Tests 10/21/20 10/21/20 10/21/20 Range/Units 09:15 09:15 09:15 WBC 2.7 L (4.0-10.2) K/uL RBC 3.40 L (4.33-5.41) M/uL Hgb 9.8 L (13.1-16.8) g/dL Hct 29.3 L (39.0-49.0) % MCV 86.2 (84.0-98.0) fL MCH 28.8 (28.2-33.3) pg MCHC 33.4 (31.7-36.0) g/dL RDW 14.2 H (11.2-14.1) % Plt Count 44 L* (150-350) K/uL Neut % (Auto) 60.2 (45.0-80.0) % Lymph % (Auto) 18.4 (10.0-50.0) % [place] % (Auto) 19.9 H (2.0-14.0) % Eos % (Auto) 0.0 (0.0-5.0) % Baso % (Auto) 1.5 (0.0-2.0) % Neut # (Auto) 1.64 (1.40-7.00) K/uL Lymph # (Auto) 0.50 (0.50-3.50) K/uL [place] # (Auto) 0.54 (0.00-1.00) K/uL Eos # (Auto) 0.00 (0.00-0.50) K/uL Baso # (Auto) 0.04 (0.00-0.20) K/uL D-Dimer, Quantitative > 5000 H (0-400) ng/mL Sodium 136 (136-145) mmol/L Potassium 4.7 (3.5-5.1) mmol/L Chloride 101 (98-107) mmol/L Carbon Dioxide 22.7 (21.0-32.0) mmol/L BUN 39 H (7-18) mg/dL Creatinine 1.35 H (0.51-1.17) mg/dL Est Cr Clr Drug Dosing TNP Estimated GFR (MDRD) 50 mL/min Glucose 192 H (74-106) mg/dL Calcium 8.5 (8.5-10.1) mg/dL Total Bilirubin 0.4 (0.2-1.0) mg/dL AST 52 H (15-37) U/L ALT 30 (12-78) U/L Alkaline Phosphatase 42 L (46-116) IU/L Creatine Kinase 356 H (26-308) U/L Creatine Kinase Index 2.7 H (0.0-2.5) % CK-MB (CK-2) 9.50 H* (0.00-3.60) ng/mL Troponin I (0.000-0.056) ng/mL Total Protein 7.3 (6.4-8.2) g/dL Albumin 3.7 (3.4-5.0) g/dL 04/30/20 Range/Units 09:15 WBC (4.0-10.2) K/uL RBC (4.33-5.41) M/uL Hgb (13.1-16.8) g/dL Hct (39.0-49.0) % MCV (84.0-98.0) fL MCH (28.2-33.3) pg MCHC (31.7-36.0) g/dL RDW (11.2-14.1) % Plt Count (150-350) K/uL Neut % (Auto) (45.0-80.0) % Lymph % (Auto) (10.0-50.0) % [place] % (Auto) (2.0-14.0) % Eos % (Auto) (0.0-5.0) % Baso % (Auto) (0.0-2.0) % Neut # (Auto) (1.40-7.00) K/uL Lymph # (Auto) (0.50-3.50) K/uL [place] # (Auto) (0.00-1.00) K/uL Eos # (Auto) (0.00-0.50) K/uL Baso # (Auto) (0.00-0.20) K/uL D-Dimer, Quantitative (0-400) ng/mL Sodium (136-145) mmol/L Potassium (3.5-5.1) mmol/L Chloride (98-107) mmol/L Carbon Dioxide (21.0-32.0) mmol/L BUN (7-18) mg/dL Creatinine (0.51-1.17) mg/dL Est Cr Clr Drug Dosing Estimated GFR (MDRD) mL/min Glucose (74-106) mg/dL Calcium (8.5-10.1) mg/dL Total Bilirubin (0.2-1.0) mg/dL AST (15-37) U/L ALT (12-78) U/L Alkaline Phosphatase (46-116) IU/L Creatine Kinase (26-308) U/L Creatine Kinase Index (0.0-2.5) % CK-MB (CK-2) (0.00-3.60) ng/mL Troponin I 3.768 H* (0.000-0.056) ng/mL Total Protein (6.4-8.2) g/dL Albumin (3.4-5.0) g/dL - Re-Assessments/Exams Free Text/Narrative Re-Assessment/Exam: 04/30/20 10:44 CT head: 1.5 cm right subdural No shift per radiologist Other CT and CXR without findings except CT chest pending See lab Troponin markedly elevated D/W Dr Reyes On-call neurosurgery and Dr Braden ER physician [facility] Will accept n transfer Transfer via EMS Departure - Departure Time of Disposition: 11:00 Disposition: DC/Tfer to Acute Hospital 02 Clinical Impression: Subdural hemorrhage, Subdural hemorrhage after traumatic injury without open intracranial wound, with prolonged loss of consciousness and return to pre- existing level of consciousness, Elevated troponin - Discharge Information *PRESCRIPTION DRUG MONITORING PROGRAM REVIEWED*: Not Applicable *COPY OF PRESCRIPTION DRUG MONITORING REPORT IN PATIENT KADEN: Not Applicable Sepsis Event Note (ED) - Evaluation Sepsis Screening Result: No Definite Risk - Focused Exam Vital Signs: Vital Signs Pulse Resp Pulse Ox 04/30/20 09:06 73 26 H 100 - My Orders Last 24 Hours: My Active Orders 04/30/20 09:17 Head wo Cont [CT] Stat 04/30/20 09:19 EKG Documentation Completion [RC] ASDIRECTED EKG 12 Lead [EK] Stat 04/30/20 09:22 Chest 1V Frontal [CR] Stat 04/30/20 09:40 Cervical Spine wo Cont [CT] Stat Max Facial Sinus wo Cont [CT] Stat 04/30/20 10:08 Chest wo Cont [CT] Stat - Assessment/Plan Last 24 Hours: My Active Orders 04/30/20 09:17 Head wo Cont [CT] Stat 04/30/20 09:19 EKG Documentation Completion [RC] ASDIRECTED EKG 12 Lead [EK] Stat 04/30/20 09:22 Chest 1V Frontal [CR] Stat 04/30/20 09:40 Cervical Spine wo Cont [CT] Stat Max Facial Sinus wo Cont [CT] Stat 04/30/20 10:08 Chest wo Cont [CT] Stat
== END 2020-04-30 11:20 ==
LOC: LL.ED 09:06
DX: S06.5X5A Traumatic subdural hemorrhage with loss of consciousness greater than 24 hours with return to pre-existing conscious level, initial encounter (principal); S00.83XA Contusion of other part of head, initial encounter; R79.89 Other specified abnormal findings of blood chemistry; J44.9 Chronic obstructive pulmonary disease, unspecified; N18.9 Chronic kidney disease, unspecified; I13.0 Hypertensive heart and chronic kidney disease with heart failure and stage 1 through stage 4 chronic kidney disease, or unspecified chronic kidney disease; I50.9 Heart failure, unspecified; E03.9 Hypothyroidism, unspecified; M19.90 Unspecified osteoarthritis, unspecified site; K21.9 Gastro-esophageal reflux disease without esophagitis; Z88.0 Allergy status to penicillin; Z91.013 Allergy to seafood; Z79.82 Long term (current) use of aspirin; Z86.73 Personal history of transient ischemic attack (TIA), and cerebral infarction without residual deficits; Z79.899 Other long term (current) drug therapy; W22.8XXA Striking against or struck by other objects, initial encounter
CPT/HCPCS: 36415; 51702; 70450; 70486; 71045; 71250; 72125; 73610; 80053; 82550; 82553; 84484; 85025; 85379; 93005; 99285; J7030; 99284